=== PATIENT | male | born 1945 | race Caucasian/White ===

== ENCOUNTER 2016-12-23 14:07 | Inpatient (IN) | payer MEDICARE, OTHER ==
[~2016-12-23] VITALS: Ht 162.6 cm; Wt 52.2 kg
[~2016-12-23 14:07] MED LIST: CARI350T27 PO; ESOM40CA PO; FLUT1DIS3 IH; HYDR-548 PO; LEVE500T9 PO; LEVO100T9 PO; MECL-118 PO; PREG150C PO; QUET50TA PO; TOPI-37 PO; TRAM50TA2 PO; TUDORZA INH; ZOLP10TA6 PO
--- NOTE | 2016-12-23 14:25 | NUR ---
AAOX3, C/O PAIN TO L GROIN X 2 MONTHS. RESP IS EVEN AND UNLABORED WITH NAD NOTED. SKIN IS WARM AND NON DIAPHORETIC. AWAITING MD FOR EVAL.
[2016-12-23 14:52] LABS: BASOPHILS % (AUTO) 0.5 % (0.0-2.0); EOSINOPHILS # (AUTO) 0.1 /CMM (0.0-0.7); EOSINOPHILS % (AUTO) 2.1 % (0.0-6.0); HEMATOCRIT 37 % (39-51); HEMOGLOBIN 13.2 g/dL (13.5-17.5); LYMPHOCYTES # (AUTO) 1.8 /CMM (0.8-4.8); LYMPHOCYTES % (AUTO) 32.8 % (20.0-44.0); MEAN CORPUSCULAR HEMOGLOBIN 32 PG (26.0-33.0); MEAN CORPUSCULAR HGB CONC 36 g/dl (31.0-36.0); MEAN CORPUSCULAR VOLUME 91 fL (80-96); MONOCYTES # (AUTO) 0.4 /CMM (0.1-1.30); MONOCYTES % (AUTO) 6.8 % (2.0-12.0); NEUTROPHILS # (AUTO) 3.3 /CMM (1.8-8.9); NEUTROPHILS % (AUTO) 57.8 % (43.0-81.0); PLATELET COUNT (AUTO) 162 /CMM (150-450); RDW COEFFICIENT OF VARIATION 12.8 (11.5-15.0); RED BLOOD CELL COUNT(AUTO) 4.09 MIL/uL (4.5-6.0); WHITE BLOOD COUNT (AUTO) 5.6 K/uL (4.3-11.0)
[2016-12-23] MEDS ORDERED: IV SET PRIMARY 1 EA INFUS.SET MC ONE (14:54)
[2016-12-23] MEDS ORDERED: IV NS 0.9% 500 ML IV ONE (14:54)
[2016-12-23] MEDS ORDERED: MORPHINE SULFATE INJ 4 MG/ML DISP.SYRIN ONE (14:54)
[2016-12-23] MEDS ORDERED: ONDANSETRON HCL/PF 4 MG/2 ML VIAL ONE (14:54)
[2016-12-23] MEDS ORDERED: IV NS 0.9% 500 ML BAG IV ONE (15:00)
[2016-12-23] MEDS ORDERED: ONDANSETRON HCL/PF 4 MG/2 ML VIAL IVP ONE (15:00)
[2016-12-23] MEDS ORDERED: MORPHINE SULFATE INJ 2 MG/ML DISP.SYRIN IV ONE (15:00)
[2016-12-23 15:02] LABS: CALCIUM, SERUM 9.1 mg/dL (8.5-10.1); CREATININE 0.9 mg/dL (0.6-1.3); POTASSIUM 4.1 mmol/L (3.5-5.1)
[2016-12-23] MEDS ORDERED: IV NS 0.9% 250 ML IV ONE (15:09)
[2016-12-23] MEDS ORDERED: CT SWABBABLE VALVE TRANS SET 1 EA INFUS.SET MC ONE (15:09)
[2016-12-23 15:10] LABS: ALBUMIN 3.9 g/dL (3.4-5.0); BILIRUBIN,DIRECT 0.1 mg/dL (0.0-0.2); BILIRUBIN,TOTAL 0.2 mg/dL (0.2-1.0); TOTAL PROTEIN, SERUM 7.1 g/dL (6.4-8.2)
--- NOTE | 2016-12-23 15:58 | NUR ---
PATIENT CAME BACK FROM CT VIA WHEELCHAIR.
--- NOTE | 2016-12-23 16:30 | NUR ---
Patient is resting comfortably in bed with eyes closed. Easily aroused. VSS
[2016-12-23 16:58] LABS: APPEARANCE,URINE Clear (CLEAR); BILIRUBIN,URINE Negative (NEGATIVE); BLOOD, URINE Trace-lysed Ery/uL (NEGATIVE); COLOR,URINE Yellow (YELLOW); KETONES,URINE Negative (NEGATIVE); LEUKOCYTE ESTERASE ,URINE Negative (NEGATIVE); NITRITE, URINE Negative (NEGATIVE); PH,URINE 7.5 (5.0-8.0); PROTEIN,URINE Negative (NEGATIVE); UGLUCOSE Negative (NEGATIVE); UROBILINOGEN,URINE 0.2 EU/dL (0.2)
--- NOTE | 2016-12-23 17:08 | NUR ---
JACEY ROME AT FOR AN UPDATE AND RE-EVAL.
[2016-12-23 17:15] LABS: WBC,URINE 0-2 /HPF (0-3)
[2016-12-23 17:16] LABS: ADD URINE CULTURE NO; BACTERIA,URINE None seen /HPF (None Seen); SQUAMOUS EPITHELIAL CELL,UR Few /HPF (None Seen)
--- NOTE | 2016-12-23 17:33 | NUR ---
CALLED DR DOTY ON THE PHONE WITH JACEY HERNANDEZ
--- NOTE | 2016-12-23 17:47 | NUR ---
REPAGED DR DOTY FOR DR DURANT
[2016-12-23] MEDS ORDERED: BUDE90AE IH (17:51)
[2016-12-23] MEDS ORDERED: TAMS-12 PO (17:51)
[2016-12-23] MEDS ORDERED: DONE5TAB34 PO (17:51)
[2016-12-23] MEDS ORDERED: CYAN10006 IM (17:51)
[2016-12-23] MEDS ORDERED: ESOM40CA52 PO (17:51)
[2016-12-23] MEDS ORDERED: MIRT30TA7 PO (17:51)
[2016-12-23] MEDS ORDERED: SENN-71 PO (17:51)
[2016-12-23] MEDS ORDERED: TIOT4MIS3 IH (17:51)
[2016-12-23] MEDS ORDERED: ERGO50003 PO (17:51)
[2016-12-23] MEDS ORDERED: BICA50TA6 PO (17:51)
[2016-12-23] MEDS ORDERED: ASPI81TA2 PO (17:51)
[2016-12-23] MEDS ORDERED: LORA10TA7 PO (17:51)
[2016-12-23] MEDS ORDERED: MEMA5TAB PO (17:51)
[2016-12-23] MEDS ORDERED: FLUT1BLS IH (17:51)
--- NOTE | 2016-12-23 18:30 | NUR ---
REPORT GIVEN TO THEA GODINEZ FOR WERNER MS [id number]
--- NOTE | 2016-12-23 19:20 | NUR ---
RN OPEN NOTES RECEIVED PATIENT AWAKE SITTING ON BED WITH FAMILY AT BEDSIDE. NEW ADMIT FROM ER THAT ARRIVED ON UNIT AT 1900 PER RN. A/O X3. NO SIGNS OF DISTRESS OR DISCOMFORT. BREATHING EVEN AND UNLABORED. STATES HE HAS ABD PAIN 12/26. IV ACCESS IN LAC PATENT AND INTACT. NO SIGNS OF REDNESS OR INFILTRATION. ORIENTED PATIENT TO UNIT AND ROOM. BED IN LOW LOCKED POSITION WITH SIDE RAILS X2. CALL LIGHT WITHIN REACH. WILL CONTINUE TO MONITOR.
[2016-12-23 20:00] VITALS: BP 125/67
[2016-12-23] MEDS ORDERED: ACETAMINOPHEN 325 MG/SUPP.RECT RC PRN (20:30)
[2016-12-23] MEDS ORDERED: ZOLPIDEM TARTRATE 10 MG TABLET PO PRN (20:30)
[2016-12-23] MEDS ORDERED: ONDANSETRON HCL/PF 4 MG/2 ML VIAL IV PRN (20:30)
[2016-12-23] MEDS ORDERED: PANTOPRAZOLE 40 MG VIAL IV SCH (21:00)
[2016-12-23] MEDS ORDERED: IV SET PRIMARY PUMP SET 1 EA INFUS.SET MC ONE (21:30)
[2016-12-23] MEDS: ALPRAZOLAM 0.25 MG TABLET PO SCH (21:40)
[2016-12-23] MEDS: QUETIAPINE FUMARATE 25 MG TABLET PO SCH (21:40)
[2016-12-23] MEDS: IV D5/ 0.9% NACL 1,000 ML IV SCH (21:40)
--- NOTE | 2016-12-23 21:45 | NUR ---
RN NOTES DR. DOTY IN TO SEE PATIENT.
[2016-12-23 22:19] LABS: MAGNESIUM 1.8 mg/dL (1.8-2.4)
[2016-12-23] MEDS: METRONIDAZOLE 500MG/ NS 100ML 250 MG in PREMIX 1 EA IV SCH (23:09)
--- NOTE | 2016-12-23 23:35 | NUR ---
RN NOTES RECEIVED T/O FROM DR. DOTY TO PUT PATIENT ON PUREED DIET WITH ENSURE 3X A DAY. WILL CONTINUE TO MONITOR. Addendum: 12/24/16 at 0738 by OREN FLORES RN DR. DOTY WORK: [phone] C/P: [phone]
[2016-12-24] MEDS: METRONIDAZOLE 500MG/ NS 100ML 250 MG in PREMIX 1 EA IV SCH ×4 (05:32→23:58)
--- NOTE | 2016-12-24 06:30 | NUR ---
RN NOTES STARTED NEW IV ACCESS IN L WRIST 20G. WILL CONTINUE TO MONITOR.
[2016-12-24 06:34] LABS: BASOPHILS % (AUTO) 0.6 % (0.0-2.0); EOSINOPHILS # (AUTO) 0.1 /CMM (0.0-0.7); EOSINOPHILS % (AUTO) 2.1 % (0.0-6.0); HEMATOCRIT 34 % (39-51); HEMOGLOBIN 11.6 g/dL (13.5-17.5); LYMPHOCYTES # (AUTO) 1.9 /CMM (0.8-4.8); LYMPHOCYTES % (AUTO) 37.7 % (20.0-44.0); MEAN CORPUSCULAR HEMOGLOBIN 31 PG (26.0-33.0); MEAN CORPUSCULAR HGB CONC 34 g/dl (31.0-36.0); MEAN CORPUSCULAR VOLUME 91 fL (80-96); MONOCYTES # (AUTO) 0.4 /CMM (0.1-1.30); MONOCYTES % (AUTO) 8.4 % (2.0-12.0); NEUTROPHILS # (AUTO) 2.6 /CMM (1.8-8.9); NEUTROPHILS % (AUTO) 51.2 % (43.0-81.0); PLATELET COUNT (AUTO) 164 /CMM (150-450); RDW COEFFICIENT OF VARIATION 13.6 (11.5-15.0); RED BLOOD CELL COUNT(AUTO) 3.72 MIL/uL (4.5-6.0)
[2016-12-24 06:49] LABS: BILIRUBIN,TOTAL 0.3 mg/dL (0.2-1.0); CREATININE 0.8 mg/dL (0.6-1.3); POTASSIUM 3.5 mmol/L (3.5-5.1); TOTAL PROTEIN, SERUM 5.6 g/dL (6.4-8.2)
[2016-12-24 06:58] LABS: THYROID STIMULATING HORMONE 0.405 uIU/mL (0.358-3.74)
--- NOTE | 2016-12-24 07:31 | NUR ---
RN CLOSING NOTES PATIENT AWAKE IN BED WITH FAMILY AT BEDSIDE. A/O X3. NO SIGNS OF DISTRESS OR DISCOMFORT. BREATHING EVEN AND UNLABORED. DENIES ANY PAIN AT THIS TIME. IV ACCESS IN L WRIST WITH D5NS INFUSING, PATENT AND INTACT. NO SIGNS OF REDNESS OR INFILTRATION. NO SIGNIFICANT CHANGES THROUGH THE NIGHT. ALL NEEDS MET. PATIENT KEPT CLEAN DRY AND COMFORTABLE. BED IN LOW LOCKED POSITION WITH SIDE RAILS X2. CALL LIGHT WITHIN REACH. ENDORSED TO AM SHIFT FOR WERNER.
[2016-12-24 08:00] VITALS: BP 101/60
[2016-12-24] MEDS ORDERED: Magnesium 1GM/D5W 100ML PREMIX PIGGYBACK IV SCH (08:00)
--- NOTE | 2016-12-24 08:00 | NUR ---
ms rn notes Received a call from Dr. White and ordered Magnesium IV 2g x 2 days, calcium gluconate x 2 days, ferrlicet x 5 days. Cervical spine, left shoulder, and hip x ray today. All orders carried out and noted. Will continue to monitor patient accordingly.
[2016-12-24] MEDS ORDERED: SECONDARY IV SET 1 EA INFUS.SET MC ONE ×4 (08:41→17:54)
[2016-12-24] MEDS: CYANOCOBALAMIN 1,000 MCG/ML VIAL IM SCH (08:47)
[2016-12-24] MEDS: Calcium Gluconate 1GM/10ML 4.65 MEQ in IV D5W 50 ML IV SCH ×2 (08:47→09:59)
[2016-12-24] MEDS: ALPRAZOLAM 0.25 MG TABLET PO SCH ×2 (08:47→17:53)
[2016-12-24] MEDS: QUETIAPINE FUMARATE 25 MG TABLET PO SCH ×2 (08:47→17:53)
--- NOTE | 2016-12-24 10:26 | NUR ---
MS RN OPENING NOTES PATIENT A/OX3 WITH FAMILY MEMBER AT BEDSIDE. PT SHOWED NO SIGNS OF DISCOMFORT/DISTRESS. BREATHING EVEN AND UNLABORED. IV ACCESS PATENT AND INTACT. PT KEPT COMFORTABLE, CLEAN, AND
[2016-12-24] MEDS: Magnesium 1GM/D5W 100ML PREMIX 100 ML IV SCH ×2 (10:38→11:55)
[2016-12-24] MEDS ORDERED: MECLIZINE HCL 12.5 MG TABLET PO PRN (12:00)
[2016-12-24] MEDS ORDERED: TRAMADOL HCL 50 MG TABLET PO SCH ×2 (12:00→21:00)
[2016-12-24] MEDS ORDERED: CYANOCOBALAMIN 1,000 MCG/ML VIAL IM SCH (12:00)
--- NOTE | 2016-12-24 12:41 | NUR ---
ms rn notes Spoke to Dr. White through phone and clarified regarding patient psych medication orders and per MD to continue medication as ordered. All orders carried out and noted. Will continue to monitor patient accordingly.
[2016-12-24] MEDS: ASPIRIN 81 MG TAB.CHEW PO SCH (13:04)
[2016-12-24] MEDS: BICALUTAMIDE 50 MG TABLET PO SCH (13:04)
[2016-12-24] MEDS: PANTOPRAZOLE 40 MG TABLET.DR PO SCH (13:04)
[2016-12-24] MEDS: SENNOSIDES/DOCUSATE SODIUM 1 TAB TABLET PO SCH (13:05)
[2016-12-24] MEDS: LORATADINE 10 MG TABLET PO SCH (13:05)
[2016-12-24] MEDS: DONEPEZIL 5 MG TABLET PO SCH (13:05)
[2016-12-24] MEDS: TAMSULOSIN 0.4 MG CAP.SR.24H PO SCH (13:05)
[2016-12-24] MEDS: SOD FERRIC GLUC 125 MG in IV NS 0.9% 100 ML IV SCH (14:12)
[2016-12-24 14:13] LABS: FREE PSA 0.32 ng/mL (0.00-45); PROSTATE SPECIFIC ANTIGEN SCR 0.63 ng/mL (0.00-4.00); URIC ACID 4.7 mg/dL (2.6-7.2)
[2016-12-24 16:00] VITALS: BP 101/53
[2016-12-24] MEDS: PREGABALIN 25 MG CAPSULE PO SCH (17:53)
[2016-12-24] MEDS: MEMANTINE HCL 5 MG TABLET PO SCH (17:53)
[2016-12-24 18:00] VITALS: BP 101/53
[2016-12-24] MEDS: HYDROCODONE/APAP 10/325MG 1 EA TABLET PO PRN (18:07)
--- NOTE | 2016-12-24 18:17 | NUR ---
MS RN NOTES: PT REFUSED LYRICA 150MG AND NAMENDA 10MG. WILL RETURN TO THE PYXIS. EXPLAINED THE BENEFITS AND RISKS x3 AND PT STILL REFUSED. WILL CONTINUE TO MONITOR PT.
--- NOTE | 2016-12-24 18:38 | NUR ---
MS RN NOTES Dr. White came seen and examined the patient and ordered Tegretol 100 mg 1 tab PO BID. All orders carried out and noted. Will continue to monitor accordingly.
[2016-12-24] MEDS: CARBAMAZEPINE 100 MG TAB.CHEW PO SCH (18:54)
[2016-12-24] MEDS: SUMATRIPTAN SUCCINATE 6 MG/0.5 ML VIAL SQ PRN (18:54)
--- NOTE | 2016-12-24 19:29 | NUR ---
MS RN CLOSING NOTES PATIENT RESTING IN BED. A/O X3. NO SIGNS OF DISTRESS OR DISCOMFORT. BREATHING EVEN AND UNLABORED. IV ACCESS PATENT AND INTACT. NO SIGNS OF REDNESS OR INFILTRATION. DENIES ANY PAIN AT THIS TIME. KEPT CLEAN, DRY, AND COMFORTABLE. NO SIGNIFICANT CHANGES THROUGH THE SHIFT. ALL NEEDS MET. BED IN LOW LOCKED POSITION WITH SIDE RAILS X2. CALL LIGHT WITHIN REACH. ENDORSED TO GREEN LUMBER GRADER NURSE.
[2016-12-24 20:00] VITALS: BP 136/76
--- NOTE | 2016-12-24 20:00 | NUR ---
MS RN NOTES RECEIVED ON BED SLEEPING,BREATHING REGULAR,NOT IN ANY FORM OF DISTRESS.PRESENT IVF D5NS AT 75ML/HR RATE VIA IV PUMP,SITE PATENT.FAMILY MEMBER AT BEDSIDE.CALL LIGHT IN REACH,NEEDS ANTICIPATED.
--- NOTE | 2016-12-24 20:00 | NUR ---
MS RN NOTES FAMILY MEMBER REFUSED VITAL SIGNS TO BE CHECK AT THIS TIME,TILL PATIENT AWAKE.
[2016-12-24] MEDS ORDERED: MIRTAZAPINE 15 MG TABLET PO SCH (22:00)
[2016-12-24] MEDS ORDERED: ZOLPIDEM TARTRATE 10 MG TABLET PO SCH (22:00)
[2016-12-24] MEDS: IV D5/ 0.9% NACL 1,000 ML IV SCH (22:13)
[2016-12-25] VITALS: BP 136/76
--- NOTE | 2016-12-25 05:00 | NUR ---
MS RN NOTES AWAKE,AMBULATE IN THE HALLWAYS WITH ,WITH STEADY GAIT.C/O HEADACHE POST AMBULATION.
[2016-12-25] MEDS ORDERED: SUMATRIPTAN SUCCINATE 6 MG/0.5 ML VIAL SQ ONE (05:35)
[2016-12-25] MEDS: METRONIDAZOLE 500MG/ NS 100ML 250 MG in PREMIX 1 EA IV SCH ×4 (05:42→23:42)
[2016-12-25] MEDS: SUMATRIPTAN SUCCINATE 6 MG/0.5 ML VIAL SQ PRN (05:49)
--- NOTE | 2016-12-25 05:49 | NUR ---
MS RN NOTES MEDICATED WITH IMITREX 6MG SQ ORDERED FOR HEADACHE
--- NOTE | 2016-12-25 06:35 | NUR ---
MS RN NOTES SLEEPING AT THIS TIME, AT BEDSIDE,IVF FLUIDS SITE REMAINS PATENT.IN NO ACUTE DISTRESS.WILL ENDORSE TO DAY NURSE FOR WERNER.
--- NOTE | 2016-12-25 07:11 | NUR ---
MS RN OPENING NOTES PATIENT RECEIVED ASLEEP IN BED, EASILY AWAKENS WITH AT BEDSIDE. ALERT AND ORIENTED X3. ABLE TO VERBALIZED NEEDS, NO C/O OF PAIN OR DISCOMFORTS AT THIS TIME. ON ROOM AIR, BREATHING WELL WITH NO SOB OBSERVED. HOB ELEVATED. IV ACCESS ON LEFT WRIST PATENT AND INTACT WITH IVF OF D5NS @ 75ML/HR INFUSING WELL, NO SIGNS OF INFILTRATION NOTED. CALL LIGHT WITHIN EASY REACH, BED IN LOW POSITION AND LOCKED. SAFETY MEASURES MAINTAINED. WILL CONTINUE TO MONITOR ACCORDINGLY.
[2016-12-25 08:00] VITALS: BP 110/62
[2016-12-25] MEDS: PANTOPRAZOLE 40 MG TABLET.DR PO SCH (08:27)
[2016-12-25] MEDS: LEVOTHYROXINE SODIUM 100 MCG TABLET PO SCH (08:27)
[2016-12-25] MEDS: ASPIRIN 81 MG TAB.CHEW PO SCH (08:28)
[2016-12-25] MEDS: CARBAMAZEPINE 100 MG TAB.CHEW PO SCH ×3 (08:28→20:09)
[2016-12-25] MEDS: TAMSULOSIN 0.4 MG CAP.SR.24H PO SCH (08:28)
[2016-12-25] MEDS: MEMANTINE HCL 5 MG TABLET PO SCH ×2 (08:29→17:00)
[2016-12-25] MEDS: QUETIAPINE FUMARATE 25 MG TABLET PO SCH ×2 (08:29→17:56)
[2016-12-25] MEDS: BICALUTAMIDE 50 MG TABLET PO SCH (08:29)
[2016-12-25] MEDS: DONEPEZIL 5 MG TABLET PO SCH (08:29)
[2016-12-25] MEDS: CYANOCOBALAMIN 1,000 MCG/ML VIAL IM SCH (08:30)
[2016-12-25] MEDS: PREGABALIN 25 MG CAPSULE PO SCH ×2 (08:31→17:00)
[2016-12-25] MEDS: HYDROCODONE/APAP 10/325MG 1 EA TABLET PO PRN ×2 (08:37→17:55)
[2016-12-25] MEDS: LORATADINE 10 MG TABLET PO SCH (08:38)
[2016-12-25] MEDS: ALPRAZOLAM 0.25 MG TABLET PO SCH ×2 (08:39→17:56)
[2016-12-25] MEDS: SENNOSIDES/DOCUSATE SODIUM 1 TAB TABLET PO SCH (08:40)
[2016-12-25 08:44] LABS: RETICULOCYTE COUNT 0.5 % (0.6-2.5)
[2016-12-25] MEDS: STIOLTO RESPIMAT INH SCH (11:00)
--- NOTE | 2016-12-25 13:47 | NUR ---
RN NOTES CALLED DR DOTY AND LEFT MESSAGE TO CHECK/RECONCILE PATIENT'S MEDICATIONS TEGRETOL AND ULTRAM (CAUSES ADVERSE REACTIONS WHEN TAKEN BY PATIENT). LEFT MESSAGE TO CALL ME BACK. WILL FOLLOW-UP.
[2016-12-25] MEDS: BREO ELLIPTA INH SCH (13:54)
[2016-12-25] MEDS: SOD FERRIC GLUC 125 MG in IV NS 0.9% 100 ML IV SCH (14:11)
[2016-12-25 16:00] VITALS: BP 121/71
[2016-12-25] MEDS: PULMICORT INH SCH (17:55)
--- NOTE | 2016-12-25 18:15 | NUR ---
RN NOTES PATIENT SEEN AND EXAMINED BY DR DOTY, ORDERED TO DISCONTINUE ULTRAM TAB AND INCREASED TEGRETOL T0 200MG BID. WILL CONTINUE TO MONITOR.
--- NOTE | 2016-12-25 18:55 | NUR ---
M/RN CLOSING NOTES PATIENT RESTING IN BED WITH FAMILY AT BEDSIDE. ALERT AND ORIENTED X3. ABLE TO VERBALIZED NEEDS AND CONCERNS. ON ROOM AIR, BREATHING WELL. HOB ELEVATED. ALL NEEDS AND CARE PROVIDED. IV ACCESS PATENT AND INTACT WITH IVF OF D5NS @ 75ML/HR IN PROGRESS, NO SIGNS OF INFILTRATION NOTED. ALL DUE MEDS GIVEN ORDERED AND TOLERATED. CALL LIGHT WITHIN EASY REACH, BED IN LOW POSITION AND LOCKED. SAFETY MEASURES MAINTAINED. WILL ENDORSED TO MEDIA INTERN NURSE FOR CONTINUITY OF CARE..
--- NOTE | 2016-12-25 19:30 | NUR ---
MS NURSE'S OPENING NOTES RECEIVED REPORT FROM NIGHT NURSE. PATIENT WAS RESTING IN BED WITH SIDE RAILS UP X2, CALL LIGHT WITHIN REACH, NO SIGNS OR SOB. WILL CONTINUE TO ASSESS, MONITOR, AND IMPLEMENT PLAN OF CARE.
[2016-12-25 20:00] VITALS: BP 107/65
[2016-12-25] MEDS ORDERED: MIRTAZAPINE 15 MG TABLET PO SCH (22:00)
[2016-12-25 22:43] VITALS: BP 107/65
[2016-12-26] MEDS: METRONIDAZOLE 500MG/ NS 100ML 250 MG in PREMIX 1 EA IV SCH ×2 (05:16→12:31)
--- NOTE | 2016-12-26 06:28 | NUR ---
MS NURSE'S CLOSING NOTES PATIENT IS RESTING IN BED. NO SIGNS OF SOB OR DISTRESS. DENIES OF PAIN, SIDE RAILS UP X2. CALL LIGHT WITHIN REACH. WILL GIVE REPORT TO INCOMING NURSE.
--- NOTE | 2016-12-26 07:12 | NUR ---
M/RN OPENING NOTES PATIENT RECEIVED AWAKE IN BED WITH AT BEDSIDE. ALERT AND ORIENTED X3. ABLE TO VERBALIZED NEEDS, NO C/O OF PAIN OR DISCOMFORTS AT THIS TIME. ON ROOM AIR, TOLERATING AND BREATHING WELL HOB ELEVATED. IV ACCESS PATENT AND INTACT WITH IVF OF D5NS @ 75ML/HR INFUSING WELL, NO SIGNS OF INFILTRATION NOTED. CALL LIGHT WITHIN EASY REACH, BED IN LOW POSITION AND LOCKED. SAFETY MEASURES MAINTAINED. WILL CONTINUE TO MONITOR ACCORDINGLY
[2016-12-26 07:22] LABS: BASOPHILS % (AUTO) 0.4 % (0.0-2.0); EOSINOPHILS # (AUTO) 0.1 /CMM (0.0-0.7); EOSINOPHILS % (AUTO) 2.8 % (0.0-6.0); HEMATOCRIT 35 % (39-51); HEMOGLOBIN 11.8 g/dL (13.5-17.5); LYMPHOCYTES # (AUTO) 1.6 /CMM (0.8-4.8); LYMPHOCYTES % (AUTO) 35.2 % (20.0-44.0); MEAN CORPUSCULAR HEMOGLOBIN 31 PG (26.0-33.0); MEAN CORPUSCULAR HGB CONC 34 g/dl (31.0-36.0); MEAN CORPUSCULAR VOLUME 91 fL (80-96); MONOCYTES # (AUTO) 0.5 /CMM (0.1-1.30); MONOCYTES % (AUTO) 10.4 % (2.0-12.0); NEUTROPHILS # (AUTO) 2.3 /CMM (1.8-8.9); NEUTROPHILS % (AUTO) 51.2 % (43.0-81.0); PLATELET COUNT (AUTO) 165 /CMM (150-450); RDW COEFFICIENT OF VARIATION 13.3 (11.5-15.0); RED BLOOD CELL COUNT(AUTO) 3.83 MIL/uL (4.5-6.0); WHITE BLOOD COUNT (AUTO) 4.4 K/uL (4.3-11.0)
[2016-12-26] MEDS: LEVOTHYROXINE SODIUM 100 MCG TABLET PO SCH (07:37)
[2016-12-26] MEDS: PANTOPRAZOLE 40 MG TABLET.DR PO SCH (07:37)
[2016-12-26 08:00] VITALS: BP 116/64
[2016-12-26] MEDS: HYDROCODONE/APAP 10/325MG 1 EA TABLET PO PRN (08:00)
[2016-12-26] MEDS: CYANOCOBALAMIN 1,000 MCG/ML VIAL IM SCH (08:47)
[2016-12-26] MEDS: TAMSULOSIN 0.4 MG CAP.SR.24H PO SCH (08:48)
[2016-12-26] MEDS: MEMANTINE HCL 5 MG TABLET PO SCH (08:48)
[2016-12-26] MEDS: CARBAMAZEPINE 100 MG TAB.CHEW PO SCH (08:48)
[2016-12-26] MEDS: PREGABALIN 25 MG CAPSULE PO SCH (08:48)
[2016-12-26] MEDS: BICALUTAMIDE 50 MG TABLET PO SCH (08:48)
[2016-12-26] MEDS: ASPIRIN 81 MG TAB.CHEW PO SCH (08:48)
[2016-12-26] MEDS: QUETIAPINE FUMARATE 25 MG TABLET PO SCH (08:48)
[2016-12-26] MEDS: LORATADINE 10 MG TABLET PO SCH (08:48)
[2016-12-26] MEDS: SENNOSIDES/DOCUSATE SODIUM 1 TAB TABLET PO SCH (08:49)
[2016-12-26] MEDS: STIOLTO RESPIMAT INH SCH (08:52)
[2016-12-26] MEDS: BREO ELLIPTA INH SCH (08:52)
[2016-12-26] MEDS: ALPRAZOLAM 0.25 MG TABLET PO SCH (08:52)
[2016-12-26] MEDS: PULMICORT INH SCH (08:53)
[2016-12-26] MEDS: SOD FERRIC GLUC 125 MG in IV NS 0.9% 100 ML IV SCH (14:58)
--- NOTE | 2016-12-26 17:45 | NUR ---
RN DISCHARGED NOTES PATIENT DISCHARGED HOME AND LEFT UNIT AMBULATORY WITH CANE @ 1700H IN STABLE CONDITION ACCOMPANIED BY AND DAUGHTER. PATIENT IS ALERT AND ORIENTED X 3 IN NO ACUTE SIGNS OF DISTRESS AND NO C/O PAIN DURING DISCHARGE. V/S CHECKED AND RECORDED. BELONGING LIST FORMED SIGNED BY PATIENT. HEALTH TEACHINGS GIVEN TO PATIENT AND FAMILY AND THEY VERBALIZED UNDERSTANDING. PNEUMO VAC REFUSED BY PATIENT. MD AND CHARGE NURSE AWARE OF DISCHARGE.
[2016-12-29] MEDS ORDERED: ERGOCALCIFEROL (VITAMIN D 2) 50,000 UNIT CAPSULE PO SCH (09:00)
== END 2016-12-26 16:50 | disposition home or self-care (01) | DRG 74 ==
LOC: ER 14:10 → MED 18:45
PROVIDERS: ADMIT Family Medicine; ATTEND Family Medicine
DX: E11.43 Type 2 diabetes mellitus with diabetic autonomic (poly)neuropathy (principal); K90.9 Intestinal malabsorption, unspecified; I13.0 Hypertensive heart and chronic kidney disease with heart failure and stage 1 through stage 4 chronic kidney disease, or unspecified chronic kidney disease; K57.92 Diverticulitis of intestine, part unspecified, without perforation or abscess without bleeding; F32.1 Major depressive disorder, single episode, moderate; E11.22 Type 2 diabetes mellitus with diabetic chronic kidney disease; I50.9 Heart failure, unspecified; D63.8 Anemia in other chronic diseases classified elsewhere; E03.9 Hypothyroidism, unspecified; Z86.73 Personal history of transient ischemic attack (TIA), and cerebral infarction without residual deficits; Z87.11 Personal history of peptic ulcer disease; Z83.3 Family history of diabetes mellitus; N18.9 Chronic kidney disease, unspecified; Z85.51 Personal history of malignant neoplasm of bladder; M53.0 Cervicocranial syndrome; M10.9 Gout, unspecified; M53.1 Cervicobrachial syndrome; K40.90 Unilateral inguinal hernia, without obstruction or gangrene, not specified as recurrent; K21.9 Gastro-esophageal reflux disease without esophagitis; J45.909 Unspecified asthma, uncomplicated; E78.5 Hyperlipidemia, unspecified; G43.909 Migraine, unspecified, not intractable, without status migrainosus; M54.10 Radiculopathy, site unspecified; F01.50 Vascular dementia, unspecified severity, without behavioral disturbance, psychotic disturbance, mood disturbance, and anxiety; F90.9 Attention-deficit hyperactivity disorder, unspecified type; F41.0 Panic disorder [episodic paroxysmal anxiety]; F29 Unspecified psychosis not due to a substance or known physiological condition; F17.210 Nicotine dependence, cigarettes, uncomplicated; R63.4 Abnormal weight loss; R42 Dizziness and giddiness; M19.012 Primary osteoarthritis, left shoulder; R26.2 Difficulty in walking, not elsewhere classified; K31.84 Gastroparesis
CPT/HCPCS: 36415; 71010-TC; 72040-TC; 73030-TC; 73510-TC; 80048-TC; 80053-TC; 80076-TC; 81000-TC; 82306; 82533; 82728-TC; 82746; 83540-TC; 83615-TC; 83735-TC; 84153-TC; 84154-TC; 84443-TC; 84550-TC; 85025-TC; 85045-TC; 85652-TC; 87081-TC; A4216; A4606; C9113; J0610; J2270; J2405; J2916; J3030; J3420; J3475; J3490; J7030; J7040; J7042; J7050; J7060; Z7610

== ENCOUNTER 2017-05-25 12:03 | Emergency (ER) | payer MEDICARE, OTHER ==
[~2017-05-25] VITALS: Ht 172.7 cm; Wt 59.0 kg
[~2017-05-25 12:03] MED LIST changes: +ASPI81TA2 PO; +BICA50TA6 PO; +BUDE90AE IH; -CARI350T27 PO; +DONE5TAB34 PO; +ERGO50003 PO; -ESOM40CA PO; +ESOM40CA52 PO; +FLUT1BLS IH; -FLUT1DIS3 IH; -HYDR-548 PO; -LEVE500T9 PO; +LORA10TA7 PO; +MEMA5TAB PO; +MIRT30TA7 PO; -QUET50TA PO; +SENN-71 PO; +TAMS-12 PO; +TIOT4MIS3 IH; -TOPI-37 PO; -TRAM50TA2 PO; -TUDORZA INH
[2017-05-25 12:05] VITALS: BP 116/73
== END 2017-05-25 12:52 | disposition home or self-care (01) ==
LOC: ER 12:07
DX: H61.22 Impacted cerumen, left ear (principal); I10 Essential (primary) hypertension; K21.9 Gastro-esophageal reflux disease without esophagitis; Z79.82 Long term (current) use of aspirin; Z98.890 Other specified postprocedural states; F17.200 Nicotine dependence, unspecified, uncomplicated
CPT/HCPCS: 99281; A4606; Z7502; Z7610

== ENCOUNTER 2018-10-11 13:39 | Inpatient (IN) | payer MEDICARE, OTHER ==
[~2018-10-11] VITALS: Ht 157.5 cm; Wt 56.7 kg
[~2018-10-11 13:39] MED LIST changes: +ASPI-1169 PO; -ASPI81TA2 PO; -BICA50TA6 PO; +BICA50TA8 PO; +ERGO500014 PO; -ERGO50003 PO; -SENN-71 PO; +[UNRECOGNIZED DRUG - CODE] PO
--- NOTE | 2018-10-11 13:49 | NUR ---
BIB W C/O HEADACHE,NAUSEA/VOMITING AND WEAKNESS X 1 WEEK, TO ER BED 4, HOOKED TO MONITOR, AWAITING MD HUIZAR
--- NOTE | 2018-10-11 14:30 | NUR ---
DR ARMAS AT BEDSIDE
[2018-10-11 14:46] LABS: BASOPHILS % (AUTO) 0.7 % (0.0-2.0); EOSINOPHILS % (AUTO) 2.2 % (0.0-6.0); HEMATOCRIT 41 % (39-51); LYMPHOCYTES # (AUTO) 1.7 /CMM (0.8-4.8); LYMPHOCYTES % (AUTO) 32.6 % (20.0-44.0); MEAN CORPUSCULAR HGB CONC 34 g/dl (31.0-36.0); MEAN CORPUSCULAR VOLUME 94 fL (80-96); MONOCYTES # (AUTO) 0.4 /CMM (0.1-1.30); MONOCYTES % (AUTO) 7.9 % (2.0-12.0); NEUTROPHILS % (AUTO) 56.6 % (43.0-81.0); PLATELET COUNT (AUTO) 168 /CMM (150-450); RED BLOOD CELL COUNT(AUTO) 4.42 MIL/uL (4.5-6.0); WHITE BLOOD COUNT (AUTO) 5.3 K/uL (4.3-11.0)
[2018-10-11] MEDS ORDERED: Magnesium 1 GM/2 ML VIAL ONE (14:47)
[2018-10-11] MEDS ORDERED: ONDANSETRON HCL/PF 4 MG/2 ML VIAL ONE (14:47)
[2018-10-11] MEDS ORDERED: Magnesium 1GM/D5W 100ML PREMIX 200 ML IV ONE (14:51)
[2018-10-11 14:57] LABS: CALCIUM, SERUM 9.5 mg/dL (8.5-10.1); CARBON DIOXIDE 31 mmol/L (21-32); CHLORIDE 106 mmol/L (98-107); GLUCOSE 110 mg/dL (74-106); POTASSIUM 4.2 mmol/L (3.5-5.1); SODIUM SERUM 142 mmol/L (136-145); UREA NITROGEN, BLOOD 21 mg/dL (7-18)
[2018-10-11] MEDS ORDERED: ONDANSETRON HCL/PF - ER 4 MG/2 ML VIAL IV ONE (15:00)
[2018-10-11] MEDS ORDERED: Magnesium 1 GM/2 ML VIAL IV ONE (15:00)
[2018-10-11] MEDS ORDERED: IV NS 0.9% 1,000 ML BAG IV ONE (15:00)
[2018-10-11] MEDS ORDERED: VALPROATE 1,000 MG in IV NS 0.9% 100 ML IV SCH (15:00)
[2018-10-11] MEDS ORDERED: IOHEXOL-350 100 ML VIAL IV ONE (15:04)
[2018-10-11] MEDS ORDERED: IV NS 0.9% 250 ML IV ONE (15:04)
[2018-10-11] MEDS ORDERED: CT SWABBABLE VALVE TRANS SET 1 EA INFUS.SET MC ONE (15:04)
[2018-10-11 15:08] LABS: ALANINE AMINOTRANSFERASE 16 U/L (12-78); ALBUMIN 4.2 g/dL (3.4-5.0); ALKALINE PHOSPHATASE 64 U/L (46-116); ASPARTATE AMINOTRANSFERASE 13 U/L (15-37); BILIRUBIN,DIRECT 0.1 mg/dL (0.0-0.2); BILIRUBIN,TOTAL 0.5 mg/dL (0.2-1.0); TOTAL PROTEIN, SERUM 7.8 g/dL (6.4-8.2)
--- NOTE | 2018-10-11 15:46 | NUR ---
CALLED DR SHORT, WAS PAGED.
[2018-10-11] MEDS ORDERED: MORPHINE SULFATE INJ 10 MG/ML DISP.SYRIN ONE (15:54)
[2018-10-11] MEDS ORDERED: MORPHINE SULFATE INJ 2 MG/ML DISP.SYRIN IV ONE (16:00)
[2018-10-11] MEDS ORDERED: TOPI25TA49 PO (17:00)
[2018-10-11] MEDS ORDERED: MEGE40TA PO (17:00)
[2018-10-11] MEDS ORDERED: ALBUTEROL FS 2.5 MG/3 ML VIAL.NEB NEB ONE (17:00)
[2018-10-11] MEDS ORDERED: FLUT1DIS3 IH (17:00)
[2018-10-11] MEDS ORDERED: NEBI5TAB8 PO (17:00)
[2018-10-11] MEDS ORDERED: IPRATROPIUM NEB FS 0.5 MG/2.5 ML AMPUL.NEB NEB ONE (17:00)
[2018-10-11] MEDS ORDERED: DIPH25CA46 PO (17:00)
[2018-10-11] MEDS ORDERED: TRAM50TA2 PO (17:00)
[2018-10-11] MEDS ORDERED: DOCU-141 PO (17:00)
[2018-10-11] MEDS ORDERED: HYDR-4354 PO (17:00)
[2018-10-11] MEDS ORDERED: ESCI10TA PO (17:00)
[2018-10-11 17:07] LABS: APPEARANCE,URINE Clear (CLEAR); BILIRUBIN,URINE Negative (NEGATIVE); BLOOD, URINE Trace-lysed Ery/uL (NEGATIVE); COLOR,URINE Yellow (YELLOW); KETONES,URINE Trace (NEGATIVE); LEUKOCYTE ESTERASE ,URINE Negative (NEGATIVE); NITRITE, URINE Negative (NEGATIVE); PROTEIN,URINE Negative (NEGATIVE); UGLUCOSE Negative (NEGATIVE); UROBILINOGEN,URINE 0.2 EU/dL (0.2)
[2018-10-11 17:27] LABS: BACTERIA,URINE None seen /HPF (None Seen); SQUAMOUS EPITHELIAL CELL,UR Few /HPF (None Seen); WBC,URINE 0-2 /HPF (0-3)
--- NOTE | 2018-10-11 17:34 | NUR ---
REPORT GIVEN TO LIEN SIDHU OF MED-SURG UNIT
[2018-10-11] MEDS ORDERED: ALBUTEROL FS 2.5 MG/3 ML VIAL.NEB ONE (17:40)
[2018-10-11] MEDS ORDERED: IPRATROPIUM NEB FS 0.5 MG/2.5 ML AMPUL.NEB ONE (17:40)
--- NOTE | 2018-10-11 19:45 | NUR ---
SIEVE GRADER TENDERWARP YARN SORTER NOTES As per report, patient came to unit at 1850. Received patient in bed, family at bedside. Patient is complaining of severe headache. Called Dr. White for orders. Orders noted and carried out. According to Dr. White, he will see the patient in the morning. Patient speaks polish/ danish. Daughter able to translate. Refused norco as it does not work. Patient and family is requesting ambien as patient wants to rest and according to daughter, it is what helps him best. Patient refused body check but as per daughter, there are no skin issues. Informed the family not to give any medications to patient, told them to bring the medications home. Medications given as ordered. Other information for admission taken from who also speaks very minimal indian- Antonio, monitor car operator, translated the information. As per , patient has decreased appetite due to headache, dietary consult requested. Patient for XRay of Cervical spine and pelvis as ordered. Oriented to call wilks, put within easy rech. Bed in low, locked position. Will continue to monitor accordingly
[2018-10-11 20:00] VITALS: BP 109/62
[2018-10-11] MEDS: ZOLPIDEM TARTRATE 10 MG TABLET PO PRN (20:16)
--- NOTE | 2018-10-11 20:26 | NUR ---
PRE K LEAD TEACHER NOTES TELE MONITOR IN PLACE- SINUS RHYTHM 76
[2018-10-11] MEDS ORDERED: diphenhydrAMINE HCL 25 MG CAPSULE PO PRN (20:30)
[2018-10-11] MEDS ORDERED: MECLIZINE HCL 12.5 MG TABLET PO PRN (23:00)
[2018-10-11] MEDS ORDERED: IV D5/0.45 NACL 1,000 ML IV PRN (23:00)
[2018-10-11] MEDS ORDERED: NEBIVOLOL 5 MG PO SCH (23:30)
[2018-10-12] VITALS: BP 110/62
[2018-10-12 00:31] VITALS: BP 110/62
[2018-10-12] MEDS: HYDROCODONE/APAP 10/325MG 1 EA TABLET PO PRN ×2 (01:36→21:28)
--- NOTE | 2018-10-12 01:38 | NUR ---
RN BONE MARROW TRANSPLANT NOTES PATIENT C/O HEADACHE, 05/28. REQUESTING FOR AMBIEN AGAIN BUT EXPLAINED THAT HE HAS ALREADY BEEN GIVEN AMBIEN. EXPLAINED THAT HE HAS AN ORDER FOR NORCO 10. PATIENT AGREED TO TAKE IT- GIVEN ORDERED. WILL CONTINUE TO MONITOR
--- NOTE | 2018-10-12 02:15 | NUR ---
EMERGENCY DEPARTMENT RN NOTES LEFT MESSAGE TO [facility] [employer] THAT PATIENT NEEDS CERVICAL COLLAR ORDERED
--- NOTE | 2018-10-12 06:38 | NUR ---
INVESTIGATION LIEUTENANT CLOSING NOTES PATIENT SLEEPING IN BED, EASILY AROUSABLE. AT BEDSIDE. TELE MONITOR IN PLACE, SB-SR [id number]. BREATHING EVEN AND UNLABORED. NOT IN ANY DISTRESS. NO COMPLAINTS OF THIS TIME. PATIENT FOR CERVICAL AND PELVIC XRAY. PERIPHERAL IV INFUSING AT 50ML/HR. ALL NEEDS ATTENDED TO. MEDICATIONS GIVEN ORDERED. WILL ENDORSE WERNER TO ONCOMING RN
--- NOTE | 2018-10-12 07:00 | NUR ---
crew person Opening Note Patient awake, resting in bed. No acute distress noted, SOB or signs/symptoms of chest pain. Alert and oriented x 3, able to verbalize needs. Primarily Slovak/South Sudanese speaking. currently at bedside. Ambulates with steady gait. laboratory monitor: sinus bradycardia at 60 bpm. Peripheral IV access to the left AC, intact, patent and infusing D5 1/2 NS @ 50 mL/hr. Skin warm and dry to touch. Fall and Safety precautions in place: bed in lowest and locked position, bed alarm on, side rails up x2, call light and personal possessions within reach. Verbalized understanding and demonstrated use of safety features. Will continue to monitor accordingly.
[2018-10-12 08:00] VITALS: BP 96/53
[2018-10-12] MEDS ORDERED: MISCELLANEOUS MED 1 EA EA XX ONE (08:00)
[2018-10-12] MEDS ORDERED: IV D5/0.45 NACL 1,000 ML IV PRN (08:30)
[2018-10-12] MEDS: TRAMADOL HCL 50 MG TABLET PO SCH ×2 (08:44→17:42)
[2018-10-12] MEDS: DOCUSATE SODIUM 100 MG CAPSULE PO SCH ×2 (08:44→17:41)
[2018-10-12] MEDS: ESCITALOPRAM OXALATE (10 MG) 10 MG TABLET PO SCH (08:44)
[2018-10-12] MEDS: TOPIRAMATE 25 MG TABLET PO SCH (08:44)
[2018-10-12] MEDS: MEGESTROL ACETATE 40 MG TABLET PO SCH (08:44)
[2018-10-12] MEDS: PREGABALIN 100 MG CAPSULE PO SCH ×2 (08:45→17:42)
[2018-10-12] MEDS: LEVOTHYROXINE SODIUM 125 MCG TABLET PO SCH (08:45)
[2018-10-12] MEDS: NACL IV SCH (08:58)
[2018-10-12] MEDS: MVI ADULT IV SCH (08:58)
[2018-10-12] MEDS: FLUTICASONE/VILANTEROL 1 EACH BLST.W.DEV IH SCH (08:58)
[2018-10-12] MEDS: D5 IV SCH (08:58)
[2018-10-12] MEDS ORDERED: FLUTICASONE/SALMETEROL DISKUS IH SCH (09:00)
[2018-10-12] MEDS ORDERED: NICOTINE PATCH (14MG) 14 MG PATCH.TD24 TD SCH (09:00)
[2018-10-12 11:03] LABS: MAGNESIUM 2.4 mg/dL (1.8-2.4)
[2018-10-12 11:20] LABS: C-REACTIVE PROTEIN 0.7 mg/dL (0.0-0.9); FREE PSA 0.33 ng/mL (0.00-45); PROSTATE SPECIFIC ANTIGEN SCR 1.04 ng/mL (0.00-4.00); THYROID STIMULATING HORMONE 3.478 uIU/mL (0.358-3.74)
[2018-10-12] MEDS: ENSURE ENLIVE 237 ML LIQUID (VANILLA) PO SCH (17:42)
--- NOTE | 2018-10-12 18:54 | NUR ---
Patient is alert, primary language is Central African. Spoke with emre Watkins [phone] , states patient lives on the first floor apartment with spouse. He is ambulatory and independent with adl's and does gardening. Has a cane if needed, no homehealth reported. Has good family support. Emre Watkins [phone] will arrange transportation when discharge. Addendum: 10/12/18 at 1854 by DAVID SHAFFER RN Amended: Links added.
--- NOTE | 2018-10-12 19:00 | NUR ---
MS RN Opening Note Patient awake, resting in bed. No acute events this shift. No acute distress noted, SOB or signs/symptoms of chest pain. Alert and oriented x 3, able to verbalize needs. Primarily Scottish/Turks [place] Caicos Islander speaking. currently at bedside. Ambulates with steady gait. Peripheral IV access to the left AC, intact, patent and infusing multivitamin 10 mL in D5 1/2 NS @ 50 mL/hr. Skin warm and dry to touch. Fall and Safety precautions in place: bed in lowest and locked position, bed alarm on, side rails up x2, call light and personal possessions within reach. Verbalized understanding and demonstrated use of safety features. Will continue to monitor accordingly.
--- NOTE | 2018-10-12 19:04 | NUR ---
MS RN NOTES RECEIVED PATIENT SITTING UP IN BED, ALERT, ORIENTED X 3. FAMILY AT BEDSIDE. BREATHING EVEN AND UNLABORED. NOT IN ANY DISTRESS. NO COMPLAINTS OF THIS TIME. PERIPHERAL IV INFUSING AT 50ML/HR. CALL [place] WITHIN REACH. BED IN LOW, LOCKED POSITION. WILL CONTINUE TO MONITOR ACCORDINGLY
[2018-10-12 20:00] VITALS: BP 103/64
[2018-10-12] MEDS: TAMSULOSIN 0.4 MG CAP.SR.24H PO SCH (21:02)
[2018-10-12] MEDS: MIRTAZAPINE 15 MG TABLET PO SCH (21:02)
--- NOTE | 2018-10-12 21:45 | NUR ---
MS RN NOTES Dr. Glass of neurology came to see the patient. Calling card given to - for appointment on at 3PM. ordered MRI Brain without contrast and Erythrocyte sedimentation rate
--- NOTE | 2018-10-12 22:28 | NUR ---
RN NOTES Came in to get consent of patient for MRI brain without contrast, patient currently sleeping. said to do it tomorrow or whenever the patient wakes up
[2018-10-13] MEDS: ZOLPIDEM TARTRATE 10 MG TABLET PO PRN (01:29)
[2018-10-13] MEDS: D5 IV SCH (05:01)
[2018-10-13] MEDS: NACL IV SCH (05:01)
[2018-10-13] MEDS: MVI ADULT IV SCH (05:01)
--- NOTE | 2018-10-13 07:00 | NUR ---
RN NOTES Consent for MRI brain w/o contrast done.
--- NOTE | 2018-10-13 07:30 | NUR ---
MS RN Closing Note Patient awake, resting in bed. No acute events this shift. No acute distress noted. Alert and oriented x 3. Primarily Divehi/Rwandan speaking. currently at bedside. Ambulates with the use of the cane- steady gait. Peripheral IV access to the left AC, intact, patent and infusing multivitamin 10 mL in D5 1/2 NS @ 50 mL/hr. Skin warm and dry to touch. Fall and Safety precautions in place: bed in lowest and locked position, side rails up x2, call light awithin reach. Verbalized understanding and demonstrated use of safety features. Endorsed WERNER to THEA Clay
--- NOTE | 2018-10-13 07:53 | NUR ---
MS RN OPENING NOTES RECEIVED PATIENT IN STABLE CONDITION. IN NO APPARENT DISTRESS. BEDSIDE RAILS ARE UPX2. BED IS LOCKED AND LOWERED. CALL LIGHT IS WITHIN REACH. IV LINE IS INTACT AND PATENT. WILL CONTINUE TO MONITOR PATIENT.
[2018-10-13 08:00] VITALS: BP 119/67
--- NOTE | 2018-10-13 08:36 | NUR ---
PER DR. DOTY CANCEL MRI DUE TO PATIENT REFUSING. PATIENT STATES HE IS CLAUSTROPHOBIC.
[2018-10-13] MEDS: TOPIRAMATE 25 MG TABLET PO SCH (08:40)
[2018-10-13] MEDS: PREGABALIN 100 MG CAPSULE PO SCH ×2 (08:40→17:35)
[2018-10-13] MEDS: FLUTICASONE/VILANTEROL 1 EACH BLST.W.DEV IH SCH (08:40)
[2018-10-13] MEDS: PANTOPRAZOLE 40 MG TABLET.DR PO SCH (08:41)
[2018-10-13] MEDS: MEGESTROL ACETATE 40 MG TABLET PO SCH (08:45)
[2018-10-13] MEDS: ENSURE ENLIVE 237 ML LIQUID (VANILLA) PO SCH ×3 (08:45→17:38)
[2018-10-13] MEDS: ESCITALOPRAM OXALATE (10 MG) 10 MG TABLET PO SCH (08:45)
[2018-10-13] MEDS: DOCUSATE SODIUM 100 MG CAPSULE PO SCH ×2 (08:45→17:00)
[2018-10-13] MEDS: TRAMADOL HCL 50 MG TABLET PO SCH ×2 (08:45→17:00)
[2018-10-13] MEDS: LEVOTHYROXINE SODIUM 125 MCG TABLET PO SCH (08:46)
[2018-10-13] MEDS: NICOTINE PATCH (7MG) 7 MG PATCH.TD24 TD SCH (08:56)
[2018-10-13] MEDS: HYDROCODONE/APAP 10/325MG 1 EA TABLET PO PRN (11:30)
[2018-10-13] MEDS: AMITRIPTYLINE HCL 10 MG TABLET PO SCH (17:35)
--- NOTE | 2018-10-13 18:26 | NUR ---
MS RN CLOSING NOTES PATIENT IS IN STABLE CONDITION. IN NO APPARENT DISTRESS. BEDSIDE RAILS ARE UPX2. BED IS LOCKED AND LOWERED. CALL LIGHT IS WITHIN REACH. IV LINE IS INTACT AND PATENT. ALL NEEDS WERE MET. WILL ENDORSE CARE TO MURAL PAINTER NURSE FOR WERNER.
--- NOTE | 2018-10-13 19:55 | NUR ---
RN MS OPENING NOTES RECEIVED PT IN BED, AWAKE ALERT ORIENTED X 3-4 DUTCH AND INDONESIAN SPEAKING. BREATHING EVEN AND UNLABORED ON ROOM AIR, NO SOB, COUGH OR CONGESTION NOTES. IV ACCESS ON THE L AC #20G WITH MULTIVITAMIN D5 1/2 NS @50ML/HR. PT DISCONNECTED AT THE MOMENT FOR A WALK AROUND THE UNIT. NO COMPLAINT OF PAIN OR DISCOMFORT AT THE MOMENT, BED IN LOWEST LOCKED POSITION, CALL LIGHT WITHIN REACH AT ALL TIMES.
[2018-10-13 20:00] VITALS: BP 108/61
[2018-10-13] MEDS: MIRTAZAPINE 15 MG TABLET PO SCH (21:57)
[2018-10-13] MEDS: TAMSULOSIN 0.4 MG CAP.SR.24H PO SCH (21:57)
[2018-10-14] MEDS: MVI ADULT IV SCH (01:15)
[2018-10-14] MEDS: NACL IV SCH (01:15)
[2018-10-14] MEDS: D5 IV SCH (01:15)
--- NOTE | 2018-10-14 06:25 | NUR ---
RN MS CLOSING NOTES PT REMAINS IN BED, AWAKE ALERT ORIENTED X 3-4 MONTSERRATIAN AND BULGARIAN SPEAKING. AT BEDSIDE. BREATHING EVEN AND UNLABORED ON ROOM AIR, NO SOB, COUGH OR CONGESTION NOTES. IV ACCESS ON THE L FA #20G WITH MULTIVITAMIN D5 1/2 NS @50ML/HR. NO COMPLAINT OF PAIN OR DISCOMFORT AT THE MOMENT, BED IN LOWEST LOCKED POSITION, ALL NEEDS ATTENDED TO. CALL LIGHT WITHIN REACH AT ALL TIMES. WILL ENDORSE TO DAY NURSE FOR WERNER
[2018-10-14 06:28] LABS: BASOPHILS % (AUTO) 0.4 % (0.0-2.0); EOSINOPHILS % (AUTO) 1.2 % (0.0-6.0); HEMATOCRIT 37 % (39-51); HEMOGLOBIN 12.5 g/dL (13.5-17.5); LYMPHOCYTES % (AUTO) 29.2 % (20.0-44.0); MEAN CORPUSCULAR HGB CONC 34 g/dl (31.0-36.0); MEAN CORPUSCULAR VOLUME 93 fL (80-96); MONOCYTES # (AUTO) 0.6 /CMM (0.1-1.30); MONOCYTES % (AUTO) 9.2 % (2.0-12.0); NEUTROPHILS # (AUTO) 4.1 /CMM (1.8-8.9); PLATELET COUNT (AUTO) 157 /CMM (150-450); RED BLOOD CELL COUNT(AUTO) 3.93 MIL/uL (4.5-6.0); WHITE BLOOD COUNT (AUTO) 6.8 K/uL (4.3-11.0)
[2018-10-14 06:44] LABS: ALANINE AMINOTRANSFERASE 15 U/L (12-78); ALBUMIN 3.3 g/dL (3.4-5.0); ALKALINE PHOSPHATASE 48 U/L (46-116); ASPARTATE AMINOTRANSFERASE 12 U/L (15-37); BILIRUBIN,TOTAL 0.2 mg/dL (0.2-1.0); CALCIUM, SERUM 8.7 mg/dL (8.5-10.1); CARBON DIOXIDE 26 mmol/L (21-32); CHLORIDE 107 mmol/L (98-107); CREATININE 0.7 mg/dL (0.6-1.3); GLUCOSE 105 mg/dL (74-106); SODIUM SERUM 141 mmol/L (136-145); TOTAL PROTEIN, SERUM 6.4 g/dL (6.4-8.2); UREA NITROGEN, BLOOD 14 mg/dL (7-18)
[2018-10-14 08:00] VITALS: BP 118/67
--- NOTE | 2018-10-14 08:00 | NUR ---
RN NOTES RECEIVED PATIENT IN THE BED A/O X3 PALAUAN SPEAKER. PATIENT REFUSED PAIN AT THIS TIME, PER PATIENT WANTED BACK TO SLEEP. NEXT TO THE BED, CALL LIGHT WITHIN TO REACH, SAFETY PRECAUTION MAINTAINED ALL THE TIME.
[2018-10-14] MEDS: ENSURE ENLIVE 237 ML LIQUID (VANILLA) PO SCH ×3 (09:10→16:43)
[2018-10-14] MEDS: NICOTINE PATCH (7MG) 7 MG PATCH.TD24 TD SCH (10:46)
[2018-10-14] MEDS: LEVOTHYROXINE SODIUM 125 MCG TABLET PO SCH (10:46)
[2018-10-14] MEDS: PREGABALIN 100 MG CAPSULE PO SCH ×2 (10:46→16:43)
[2018-10-14] MEDS: MEGESTROL ACETATE 40 MG TABLET PO SCH (10:47)
[2018-10-14] MEDS: DOCUSATE SODIUM 100 MG CAPSULE PO SCH ×2 (10:47→16:42)
[2018-10-14] MEDS: TRAMADOL HCL 50 MG TABLET PO SCH ×2 (10:47→16:43)
[2018-10-14] MEDS: PANTOPRAZOLE 40 MG TABLET.DR PO SCH (10:47)
[2018-10-14] MEDS: TOPIRAMATE 25 MG TABLET PO SCH (10:47)
[2018-10-14] MEDS: ESCITALOPRAM OXALATE (10 MG) 10 MG TABLET PO SCH (10:47)
[2018-10-14] MEDS: FLUTICASONE/VILANTEROL 1 EACH BLST.W.DEV IH SCH (10:51)
[2018-10-14] MEDS: HYDROCODONE/APAP 10/325MG 1 EA TABLET PO PRN (11:36)
--- NOTE | 2018-10-14 11:36 | NUR ---
rn notes administered narco 10/325 mg po prn for headache, and ringing right ear, crying, per patient request, v/s taken bp-115/70, p-80. continued monitoring.
--- NOTE | 2018-10-14 13:00 | NUR ---
RN NOTES PATIENT IN THE BED MEDICATION WERE ADMINISTERED FOR PAIN EFFECTIVE, SEEN PATIENT BY DR CHAVARRIA, NEW ORDER TAKEN AND CARRIED OUT, PATIENT REFUSED HEADACHE , AND EAR RINGING AT THIS TIME. INFUSING D5 1/2 AT 50 ML/HR INTACT, PATIENT AMBULATORY, USING CANE, CALL LIGHT WITHIN TO REACH, CONTINUED MONITORING.
[2018-10-14] MEDS ORDERED: DOCU-141 PO (13:25)
[2018-10-14] MEDS ORDERED: Hydrocodone/Apap 10/325MG PO (13:25)
[2018-10-14] MEDS ORDERED: PREG100C PO (13:25)
[2018-10-14] MEDS ORDERED: ESCI10TA PO (13:25)
[2018-10-14] MEDS ORDERED: LEVO125T PO (13:25)
[2018-10-14] MEDS ORDERED: MIRT15TA PO (13:25)
[2018-10-14] MEDS ORDERED: AMIT10TA6 PO (13:25)
[2018-10-14] MEDS ORDERED: MECL12.582 PO (13:25)
[2018-10-14] MEDS ORDERED: FLUT1BLS IH (13:25)
[2018-10-14] MEDS ORDERED: MEGE40TA PO (13:25)
[2018-10-14] MEDS ORDERED: TAMS-12 PO (13:25)
[2018-10-14] MEDS ORDERED: ZOLP10TA2 PO (13:25)
[2018-10-14] MEDS ORDERED: TRAM50TA2 PO (13:25)
[2018-10-14] MEDS ORDERED: DIPH25CA49 PO (13:25)
[2018-10-14] MEDS ORDERED: PANT40TA2 PO (13:25)
[2018-10-14] MEDS ORDERED: FUROSEMIDE 20 MG/2 ML VIAL IV ONE (14:00)
[2018-10-14] MEDS ORDERED: AZITHROMYCIN 500 MG in IV D5W 250 ML IV SCH (14:00)
[2018-10-14 16:00] VITALS: BP 98/60
[2018-10-14] MEDS: AMITRIPTYLINE HCL 10 MG TABLET PO SCH (17:20)
--- NOTE | 2018-10-14 18:00 | NUR ---
RN NOTES PER NEURO MD ADJUST MEDICATION. NEW ORDERS TAKEN AND CARRIED OUT.
[2018-10-14] MEDS ORDERED: SUMATRIPTAN SUCCINATE 25 MG TABLET PO ONE (18:30)
[2018-10-14] MEDS ORDERED: AMITRIPTYLINE HCL 10 MG TABLET PO ONE (18:30)
[2018-10-14] MEDS ORDERED: ONDANSETRON HCL/PF 4 MG/2 ML VIAL IV ONE (18:30)
--- NOTE | 2018-10-14 18:30 | NUR ---
RN NOTES MEDICATION ADMINISTERED, V/S STABLE , INFUSING D5 1/2 NS AT LEFT FA INTACT. MEDICATION WERE ADMINISTERED EFFECTIVE. PATIENT WALKING IN THE HALLWAY. NEXT TO THE PATIENT. ENDORSED ONCOMING NURSE FOR PLAN OF CARE.
[2018-10-14 20:00] VITALS: BP 112/73
--- NOTE | 2018-10-14 20:19 | NUR ---
RN MS OPENING NOTES RECEIVED PT IN BED, AWAKE ALERT ORIENTED X 3-4 VENEZUELAN AND NEPALI SPEAKING. BREATHING EVEN AND UNLABORED ON ROOM AIR, NO SOB, COUGH OR CONGESTION NOTES. IV ACCESS ON THE L FA #20G WITH MULTIVITAMIN D5 1/2 NS @50ML/HR. NO COMPLAINT OF PAIN OR DISCOMFORT AT THE MOMENT, NO N/V, NEURO MD CALLED AND INFORMED OF EFFECTIVENESS OF HEADACHE MEDICATION. BED IN LOWEST LOCKED POSITION, CALL LIGHT WITHIN REACH AT ALL TIMES.
[2018-10-14] MEDS: MIRTAZAPINE 15 MG TABLET PO SCH (21:17)
[2018-10-14] MEDS: TAMSULOSIN 0.4 MG CAP.SR.24H PO SCH (21:17)
--- NOTE | 2018-10-14 21:50 | NUR ---
LYRICA CHANGED FROM BID TO QHS, LAST DOSE GIVEN AT 1700, QHS DOSE HELD.
[2018-10-14] MEDS ORDERED: PREGABALIN 100 MG CAPSULE PO SCH (22:00)
[2018-10-15 07:45] LABS: BASOPHILS % (AUTO) 0.6 % (0.0-2.0); EOSINOPHILS % (AUTO) 1.7 % (0.0-6.0); HEMATOCRIT 36 % (39-51); HEMOGLOBIN 12.3 g/dL (13.5-17.5); LYMPHOCYTES # (AUTO) 2.3 /CMM (0.8-4.8); LYMPHOCYTES % (AUTO) 33.5 % (20.0-44.0); MEAN CORPUSCULAR HGB CONC 34 g/dl (31.0-36.0); MEAN CORPUSCULAR VOLUME 93 fL (80-96); MONOCYTES # (AUTO) 0.7 /CMM (0.1-1.30); MONOCYTES % (AUTO) 10.5 % (2.0-12.0); NEUTROPHILS # (AUTO) 3.8 /CMM (1.8-8.9); NEUTROPHILS % (AUTO) 53.7 % (43.0-81.0); PLATELET COUNT (AUTO) 152 /CMM (150-450); RED BLOOD CELL COUNT(AUTO) 3.89 MIL/uL (4.5-6.0)
[2018-10-15 07:59] LABS: ALANINE AMINOTRANSFERASE 17 U/L (12-78); ALBUMIN 3.2 g/dL (3.4-5.0); ALKALINE PHOSPHATASE 48 U/L (46-116); ASPARTATE AMINOTRANSFERASE 12 U/L (15-37); BILIRUBIN,TOTAL 0.2 mg/dL (0.2-1.0); CALCIUM, SERUM 8.5 mg/dL (8.5-10.1); CARBON DIOXIDE 28 mmol/L (21-32); CHLORIDE 108 mmol/L (98-107); CREATININE 0.9 mg/dL (0.6-1.3); GLUCOSE 119 mg/dL (74-106); POTASSIUM 4.2 mmol/L (3.5-5.1); SODIUM SERUM 142 mmol/L (136-145); TOTAL PROTEIN, SERUM 6.2 g/dL (6.4-8.2); UREA NITROGEN, BLOOD 15 mg/dL (7-18)
[2018-10-15 08:00] VITALS: BP 109/59
--- NOTE | 2018-10-15 08:00 | NUR ---
RN NOTES PATIENT RECEIVED IN THE ROOM. A/O X3/4. PATIENT STABLE WANTED BACK TO SLEEP. V/S STABLE . CALL LIGHT WITHIN TO REACH. CONTINUED MONITORING.
--- NOTE | 2018-10-15 09:00 | NUR ---
RN NOTES ADMINISTERED SCHEDULED MEDICATION, PATIENT WAS COMPLAINING OF HEADACHE BUT REFUSED PAIN MEDICATION, V/S STABLE. PATIENT AMBULATING IN THE ROOM. CALL LIGHT WITHIN TO REACH, NEXT TO THE BED.
--- NOTE | 2018-10-15 09:30 | NUR ---
RN NOTES GET CALL FROM DR DOTY, PER MD ADMINISTER ZITHROMAX IV INFUSION , AND DISCHARGE PATIENT HOME. PATIENT WILL FOLLOW MD IN 5 DAYS. ORDER TAKEN AND CARRIED OUT.
[2018-10-15] MEDS: LEVOTHYROXINE SODIUM 125 MCG TABLET PO SCH (09:47)
[2018-10-15] MEDS: PANTOPRAZOLE 40 MG TABLET.DR PO SCH (09:47)
[2018-10-15] MEDS: MEGESTROL ACETATE 40 MG TABLET PO SCH (09:47)
[2018-10-15] MEDS: TRAMADOL HCL 50 MG TABLET PO SCH ×2 (09:47→16:19)
[2018-10-15] MEDS: ENSURE ENLIVE 237 ML LIQUID (VANILLA) PO SCH ×3 (09:47→16:20)
[2018-10-15] MEDS: DOCUSATE SODIUM 100 MG CAPSULE PO SCH ×2 (09:47→16:19)
[2018-10-15] MEDS: FLUTICASONE/VILANTEROL 1 EACH BLST.W.DEV IH SCH (09:48)
[2018-10-15] MEDS ORDERED: AZITHROMYCIN 500 MG in IV D5W 250 ML IV SCH (14:00)
[2018-10-15 16:00] VITALS: BP 114/74
--- NOTE | 2018-10-15 17:05 | NUR ---
DISCHARGE NOTES PATIENT DISCHARGE AT THIS TIME GOING HOME. PATIENT STABLE SCHEDULED MEDICATION ADMINISTERED, V/S STABLE. PATIENT REFUSED PAIN AT THIS TIME. MED RECONCILIATION AND DISCHARGE ORDER REVIEWED AND EXPLAINED TO PATIENT AND . VERBALIZED UNDERSTANDING. PATIENT SIGN PAPERWORK. BELONGING WITH THE PATIENT. PRESCRIPTION HANDED TO THE . PATIENT WILL FOLLOW PRIMARY MD IN 5 DAYS. ESCORTED PATIENT TO THE LOBBY FOR SAFETY, PATIENT MORTGAGE OPERATIONS MANAGER BY FAMILY.
[2018-10-15] MEDS ORDERED: AMITRIPTYLINE HCL 10 MG TABLET PO SCH (18:00)
== END 2018-10-15 17:05 | disposition home or self-care (01) | DRG 552 ==
LOC: ER 13:46 → MED 17:46 → TELE 22:16 → MED 10-12 08:54
PROVIDERS: ADMIT Family Medicine; ATTEND Family Medicine
DX: M54.81 Occipital neuralgia (principal); I13.0 Hypertensive heart and chronic kidney disease with heart failure and stage 1 through stage 4 chronic kidney disease, or unspecified chronic kidney disease; K90.9 Intestinal malabsorption, unspecified; G43.909 Migraine, unspecified, not intractable, without status migrainosus; K21.9 Gastro-esophageal reflux disease without esophagitis; R63.4 Abnormal weight loss; Z68.22 Body mass index [BMI] 22.0-22.9, adult; D63.8 Anemia in other chronic diseases classified elsewhere; Z85.51 Personal history of malignant neoplasm of bladder; M54.5 Low back pain; Z91.81 History of falling; K59.00 Constipation, unspecified; M53.1 Cervicobrachial syndrome; M53.0 Cervicocranial syndrome; K40.90 Unilateral inguinal hernia, without obstruction or gangrene, not specified as recurrent; F03.90 Unspecified dementia, unspecified severity, without behavioral disturbance, psychotic disturbance, mood disturbance, and anxiety; R32 Unspecified urinary incontinence; F41.9 Anxiety disorder, unspecified; E11.22 Type 2 diabetes mellitus with diabetic chronic kidney disease; E78.5 Hyperlipidemia, unspecified; F17.210 Nicotine dependence, cigarettes, uncomplicated; F41.0 Panic disorder [episodic paroxysmal anxiety]; F43.10 Post-traumatic stress disorder, unspecified; I50.9 Heart failure, unspecified; M81.0 Age-related osteoporosis without current pathological fracture; N18.9 Chronic kidney disease, unspecified; H93.19 Tinnitus, unspecified ear; H70.10 Chronic mastoiditis, unspecified ear; G31.9 Degenerative disease of nervous system, unspecified; F90.9 Attention-deficit hyperactivity disorder, unspecified type; Z86.73 Personal history of transient ischemic attack (TIA), and cerebral infarction without residual deficits; Z87.11 Personal history of peptic ulcer disease; Z79.51 Long term (current) use of inhaled steroids; Z79.82 Long term (current) use of aspirin; I25.10 Atherosclerotic heart disease of native coronary artery without angina pectoris; J44.9 Chronic obstructive pulmonary disease, unspecified; N40.0 Benign prostatic hyperplasia without lower urinary tract symptoms
CPT/HCPCS: 36415; 70496-TC; 71045-TC; 72040-TC; 72170-TC; 74021; 80048-TC; 80053-TC; 80076-TC; 81000-TC; 82378; 82962-TC; 83540-TC; 83735-TC; 83880; 84153-TC; 84154-TC; 84443-TC; 84484-TC; 85025-TC; 85652-TC; 85730-TC; 86140-TC; 87081-TC; 93307-TC; G0378; J0456; J1940; J2270; J2405; J3475; J3490; J7030; J7050; J7060; Q0163; Q9967

== ENCOUNTER 2019-02-11 16:39 | Emergency (ER) | payer MEDICARE, OTHER ==
[~2019-02-11] VITALS: Ht 170.2 cm; Wt 52.6 kg
[~2019-02-11 16:39] MED LIST changes: +AMIT10TA6 PO; -ASPI-1169 PO; -BICA50TA8 PO; -BUDE90AE IH; +DIPH25CA46 PO; +DIPH25CA49 PO; +DOCU-141 PO; -DONE5TAB34 PO; -ERGO500014 PO; +ESCI10TA PO; +FLUT1DIS3 IH; +HYDR-4354 PO; +Hydrocodone/Apap 10/325MG PO; +LEVO125T PO; +MECL12.582 PO; +MEGE40TA PO; -MEMA5TAB PO; +MIRT15TA PO; +NEBI5TAB8 PO; +PANT40TA2 PO; +PREG100C PO; -TIOT4MIS3 IH; +TOPI25TA49 PO; +TRAM50TA2 PO; +ZOLP10TA2 PO; -[UNRECOGNIZED DRUG - CODE] PO
--- NOTE | 2019-02-11 17:02 | NUR ---
sob x 4 months, no change, smoker, 02 100% ON RA. SWEDISH-SPEAKING, AOX4, VSS, AMBULATORY. FAMILY AT BEDSIDE. READY FOR EVAL.
[2019-02-11 17:41] LABS: BASOPHILS # (AUTO) 0.1 /CMM (0.0-0.2); EOSINOPHILS % (AUTO) 2.9 % (0.0-6.0); HEMATOCRIT 37 % (39-51); HEMOGLOBIN 12.2 g/dL (13.5-17.5); LYMPHOCYTES % (AUTO) 34.5 % (20.0-44.0); MEAN CORPUSCULAR HGB CONC 34 g/dl (31.0-36.0); MEAN CORPUSCULAR VOLUME 88 fL (80-96); MONOCYTES # (AUTO) 0.5 /CMM (0.1-1.30); MONOCYTES % (AUTO) 8.2 % (2.0-12.0); NEUTROPHILS # (AUTO) 3.1 /CMM (1.8-8.9); NEUTROPHILS % (AUTO) 53.4 % (43.0-81.0); PLATELET COUNT (AUTO) 259 /CMM (150-450); RED BLOOD CELL COUNT(AUTO) 4.13 MIL/uL (4.5-6.0); WHITE BLOOD COUNT (AUTO) 5.8 K/uL (4.3-11.0)
[2019-02-11 17:47] LABS: CALCIUM, SERUM 8.6 mg/dL (8.5-10.1); CARBON DIOXIDE 25 mmol/L (21-32); CHLORIDE 108 mmol/L (98-107); CREATININE 0.9 mg/dL (0.6-1.3); GLUCOSE 165 mg/dL (74-106); POTASSIUM 3.9 mmol/L (3.5-5.1); SODIUM SERUM 145 mmol/L (136-145); UREA NITROGEN, BLOOD 16 mg/dL (7-18)
[2019-02-11 18:02] LABS: B-TYPE NATRIURETIC PEPTIDE 26 PG/ML (0-125)
--- NOTE | 2019-02-11 19:08 | NUR ---
PT SITTING COMFORTABLY IN BED. NO COMPLAINTS AT THIS TIME. VSS.
--- NOTE | 2019-02-11 19:15 | NUR ---
CALLED , TRANSFERRED CALL TO
--- NOTE | 2019-02-11 20:04 | NUR ---
IV removed. Catheter intact and site benign. Pressure and 4x4 applied to site. No bleeding noted.Patient discharged to home in stable condition. Written and verbal after care instructions given. Patient verbalizes understanding of instruction.
[2019-02-11 20:37] VITALS: BP 112/74
== END 2019-02-11 20:04 | disposition home or self-care (01) ==
LOC: ER 16:44
DX: R06.02 Shortness of breath (principal); G43.909 Migraine, unspecified, not intractable, without status migrainosus; I10 Essential (primary) hypertension; K21.9 Gastro-esophageal reflux disease without esophagitis; F32.9 Major depressive disorder, single episode, unspecified; J44.9 Chronic obstructive pulmonary disease, unspecified; G40.909 Epilepsy, unspecified, not intractable, without status epilepticus; F17.210 Nicotine dependence, cigarettes, uncomplicated; Z90.89 Acquired absence of other organs; Z85.46 Personal history of malignant neoplasm of prostate
CPT/HCPCS: 36415; 71045-TC; 80048-TC; 83880; 84484-TC; 85025-TC; 85730-TC

== ENCOUNTER 2019-04-05 15:09 | Inpatient (IN) | payer MEDICARE, OTHER ==
[~2019-04-05] VITALS: Ht 160 cm; Wt 52.8 kg
[~2019-04-05 15:09] MED LIST changes: -DIPH25CA46 PO; -DIPH25CA49 PO; -ESCI10TA PO; -ESOM40CA52 PO; -FLUT1BLS IH; -LEVO100T9 PO; -MECL-118 PO; -MECL12.582 PO; -MIRT15TA PO; -PANT40TA2 PO; -PREG100C PO; -ZOLP10TA2 PO
--- NOTE | 2019-04-05 15:09 | NUR ---
BIB FAMILY SENT BY FOR STROKE EVALUATION, TO ER BED 10, HOOKED TO MONITOR, CHANGED TO GOWN, PROVIDED W WARM BLANKET, AWAITING MD HUIZAR.
--- NOTE | 2019-04-05 15:37 | NUR ---
DR HOWARD AT BEDSIDE
[2019-04-05] MEDS ORDERED: ASPI-605 PO (15:53)
[2019-04-05] MEDS ORDERED: DIPH50CA38 PO (15:53)
[2019-04-05] MEDS ORDERED: ESOM20CA PO (15:53)
[2019-04-05] MEDS ORDERED: QUET25TA PO (15:53)
[2019-04-05] MEDS ORDERED: ESCI10TA PO (15:53)
[2019-04-05] MEDS ORDERED: KETOROLAC TROMETHAMINE INJ 30 MG/ML VIAL IV ONE (16:00)
[2019-04-05] MEDS ORDERED: ONDANSETRON HCL/PF 4 MG/2 ML VIAL IVP ONE (16:00)
[2019-04-05] MEDS ORDERED: IV NS 0.9% 1,000 ML BAG IV ONE (16:00)
[2019-04-05] MEDS ORDERED: ONDANSETRON HCL/PF 4 MG/2 ML VIAL ONE (16:11)
[2019-04-05] MEDS ORDERED: KETOROLAC TROMETHAMINE 15 MG/ML VIAL ONE (16:11)
[2019-04-05 16:16] LABS: BASOPHILS # (AUTO) 0.1 /CMM (0.0-0.2); BASOPHILS % (AUTO) 0.8 % (0.0-2.0); EOSINOPHILS % (AUTO) 0.8 % (0.0-6.0); HEMATOCRIT 39 % (39-51); HEMOGLOBIN 13.4 g/dL (13.5-17.5); LYMPHOCYTES # (AUTO) 1.9 /CMM (0.8-4.8); LYMPHOCYTES % (AUTO) 26.8 % (20.0-44.0); MEAN CORPUSCULAR HGB CONC 34 g/dl (31.0-36.0); MEAN CORPUSCULAR VOLUME 93 fL (80-96); MONOCYTES # (AUTO) 0.5 /CMM (0.1-1.30); MONOCYTES % (AUTO) 6.9 % (2.0-12.0); NEUTROPHILS # (AUTO) 4.5 /CMM (1.8-8.9); NEUTROPHILS % (AUTO) 64.7 % (43.0-81.0); PLATELET COUNT (AUTO) 211 /CMM (150-450); RED BLOOD CELL COUNT(AUTO) 4.19 MIL/uL (4.5-6.0)
--- NOTE | 2019-04-05 16:27 | NUR ---
PT AMBULATED TO RESTROOM W ASSISTANCE. PROVIDED URINE SAMPLE. SENT TO LAB
[2019-04-05 16:39] LABS: ALANINE AMINOTRANSFERASE 17 U/L (12-78); ALBUMIN 4.2 g/dL (3.4-5.0); ALKALINE PHOSPHATASE 41 U/L (46-116); ASPARTATE AMINOTRANSFERASE 13 U/L (15-37); BILIRUBIN,DIRECT 0.1 mg/dL (0.0-0.2); BILIRUBIN,TOTAL 0.5 mg/dL (0.2-1.0); CALCIUM, SERUM 9.3 mg/dL (8.5-10.1); CARBON DIOXIDE 29 mmol/L (21-32); CHLORIDE 104 mmol/L (98-107); GLUCOSE 113 mg/dL (74-106); LIPASE 333 U/L (73-393); POTASSIUM 4.6 mmol/L (3.5-5.1); SODIUM SERUM 139 mmol/L (136-145); TOTAL PROTEIN, SERUM 7.5 g/dL (6.4-8.2); UREA NITROGEN, BLOOD 13 mg/dL (7-18)
[2019-04-05 16:48] LABS: APPEARANCE,URINE Clear (CLEAR); BILIRUBIN,URINE SMALL (NEGATIVE); BLOOD, URINE Negative Ery/uL (NEGATIVE); COLOR,URINE Yellow (YELLOW); KETONES,URINE 15 (NEGATIVE); LEUKOCYTE ESTERASE ,URINE Negative (NEGATIVE); NITRITE, URINE Negative (NEGATIVE); PROTEIN,URINE 30 mg/dl (NEGATIVE); UGLUCOSE Negative (NEGATIVE); UROBILINOGEN,URINE 0.2 EU/dL (0.2)
--- NOTE | 2019-04-05 16:56 | NUR ---
[id number] [facility]
--- NOTE | 2019-04-05 17:46 | NUR ---
REPORT GIVEN TO HUEY SIDHU OF MED-SURG UNIT
--- NOTE | 2019-04-05 18:40 | NUR ---
RECEIVED PT FROM ER -ALERT AND ORIENTED.AMBULATES WITH ONLY(REFUSED TO BE ASSISTED BY ) USING CANE. AND GRANDCHILDREN AT THE BEDSIDE.TURKMEN AND UZBEK SPEAKING ONLY.PT VOIDED IN THE TOILET ACCOMPANIED BY .DENIES ANY PAIN,DISCOMFORT OR DISTRESS AT THIS TIME.ORIENTED TO HIS OWN ROOM AND USE OF CALL LIGHT.IV H/L INTACT TO RT AC.PT AMBULATED ALONG THE HALLWAY WITH SLOW,STEADY GAIT USING CANE ACCOMPANIED BY HIS WITHOUT ANY DISCOMFORT OR DISTRESS.WITH STABLE V/S.PT EATING DINNER -SOFT CARDIAC DIET-BEING FED BY HIS .PT TOLERATING WELL.WILL ENDORSE TO NIGHT NURSE,OREN'S CARE.CALL LIGHT PLACED WITHIN REACH.
--- NOTE | 2019-04-05 19:30 | NUR ---
RN OPEN NOTES RECEIVED PATIENT AWAKE IN BED WITH FAMILY AT BEDSIDE. A/OX3. NO SIGNS OF DISTRESS OR DISCOMFORT. BREATHING EVEN AND UNLABORED. IV ACCESS IN RAC, PATENT AND INTACT, NO SIGNS OF REDNESS OR INFILTRATION. BED IN LOW LOCKED POSITION WITH SIDE RAILS X2. CALL LIGHT WITHIN REACH. WILL CONTINUE TO MONITOR.
[2019-04-05 20:00] VITALS: BP 113/73
[2019-04-05] MEDS ORDERED: IPRATROPIUM NEB FS 0.5 MG/2.5 ML AMPUL.NEB NEB PRN (21:00)
[2019-04-05] MEDS ORDERED: ALBUTEROL FS 2.5 MG/0.5 ML VIAL.NEB NEB SCH (21:00)
[2019-04-05] MEDS ORDERED: MVI-12 10ML IV ONE (21:00)
[2019-04-05] MEDS ORDERED: ALBUTEROL FS 2.5 MG/0.5 ML VIAL.NEB NEB PRN (21:00)
[2019-04-05] MEDS ORDERED: IPRATROPIUM NEB FS 0.5 MG/2.5 ML AMPUL.NEB NEB SCH (21:00)
[2019-04-05] MEDS ORDERED: diphenhydrAMINE HCL 50 MG CAPSULE PO PRN (21:30)
[2019-04-05] MEDS: QUETIAPINE FUMARATE 25 MG TABLET PO SCH (22:00)
[2019-04-05] MEDS ORDERED: MIRTAZAPINE 15 MG TABLET PO PRN (22:00)
[2019-04-05] MEDS ORDERED: IV D5W 1,000 ML IV SCH (22:00)
[2019-04-05] MEDS: PREGABALIN 25 MG CAPSULE PO SCH (22:33)
[2019-04-05] MEDS: MVI ADULT IV SCH (22:34)
[2019-04-05] MEDS: Folic acid 1 MG in IV D5W 50 ML IV SCH (22:34)
[2019-04-05] MEDS: D5W IV SCH (22:34)
[2019-04-05 22:52] LABS: THYROID STIMULATING HORMONE 10.355 uIU/mL (0.358-3.74)
[2019-04-05] MEDS: ZOLPIDEM TARTRATE 10 MG TABLET PO PRN (22:56)
[2019-04-05] MEDS ORDERED: HYDROCODONE/APAP 10/325MG 1 EA TABLET PO PRN (23:30)
[2019-04-05] MEDS: Thiamine 100 MG in IV D5W 50 ML IV SCH (23:38)
[2019-04-05] MEDS: IPRATROPIUM NEB FS 0.5 MG/2.5 ML AMPUL.NEB NEB SCH (23:51)
[2019-04-05] MEDS: ALBUTEROL FS 2.5 MG/0.5 ML VIAL.NEB NEB SCH (23:51)
--- NOTE | 2019-04-06 00:01 | NUR ---
RT PATIENT REFUSED ABG ,RN WAS NOTIFIED.PATIENT STABLE AT THIS TIME .SPO2 98%. Addendum: 04/06/19 at 0003 by DESI MACIEL RT Amended: Links added.
[2019-04-06 00:22] VITALS: BP 107/70
[2019-04-06 04:06] VITALS: BP 103/56
[2019-04-06] MEDS ORDERED: TRAMADOL HCL 50 MG TABLET ONE (05:09)
--- NOTE | 2019-04-06 05:20 | NUR ---
RN NOTES ADMINISTERED TRAMADOL 50MG ORDERED AT PATIENT REQUEST FOR HEADACHE 03/27. VSS. WILL CONTINUE TO MONITOR.
[2019-04-06 06:53] LABS: BASOPHILS % (AUTO) 0.5 % (0.0-2.0); EOSINOPHILS % (AUTO) 1.8 % (0.0-6.0); HEMATOCRIT 34 % (39-51); HEMOGLOBIN 11.8 g/dL (13.5-17.5); LYMPHOCYTES # (AUTO) 2.2 /CMM (0.8-4.8); MEAN CORPUSCULAR HGB CONC 35 g/dl (31.0-36.0); MEAN CORPUSCULAR VOLUME 93 fL (80-96); MONOCYTES # (AUTO) 0.5 /CMM (0.1-1.30); MONOCYTES % (AUTO) 7.7 % (2.0-12.0); NEUTROPHILS # (AUTO) 3.3 /CMM (1.8-8.9); PLATELET COUNT (AUTO) 177 /CMM (150-450); RED BLOOD CELL COUNT(AUTO) 3.67 MIL/uL (4.5-6.0)
--- NOTE | 2019-04-06 06:53 | NUR ---
RN CLOSING NOTES PATIENT AWAKE IN BED WITH FAMILY AT BEDSIDE. A/OX3. NO SIGNS OF DISTRESS OR DISCOMFORT. BREATHING EVEN AND UNLABORED. IV ACCESS IN RAC WITH D5W W/MVI INFUSING, PATENT AND INTACT, NO SIGNS OF REDNESS OR INFILTRATION. ALL NEEDS MET. NO SIGNIFICANT CHANGES THROUGH THE NIGHT. BED IN LOW LOCKED POSITION WITH SIDE RAILS X2. CALL LIGHT WITHIN REACH. WILL ENDORSE TO AM SHIFT FOR WERNER. Addendum: 04/06/19 at 0732 by OREN FLORES RN PT ON TELE MONITORING WITH SR 66 NOTED.
[2019-04-06 06:55] LABS: CALCIUM, SERUM 8.7 mg/dL (8.5-10.1); CARBON DIOXIDE 22 mmol/L (21-32); CHLORIDE 105 mmol/L (98-107); CREATININE 0.9 mg/dL (0.6-1.3); GLUCOSE 119 mg/dL (74-106); SODIUM SERUM 138 mmol/L (136-145); UREA NITROGEN, BLOOD 14 mg/dL (7-18)
[2019-04-06] MEDS: FAMOTIDINE (20 MG) 20 MG TABLET PO SCH ×2 (07:30→08:37)
[2019-04-06] MEDS: ALBUTEROL FS 2.5 MG/0.5 ML VIAL.NEB NEB SCH ×3 (07:46→23:22)
[2019-04-06] MEDS: IPRATROPIUM NEB FS 0.5 MG/2.5 ML AMPUL.NEB NEB SCH ×3 (07:46→23:21)
[2019-04-06] MEDS ORDERED: LORATADINE 10 MG TABLET PO PRN (08:00)
--- NOTE | 2019-04-06 08:00 | NUR ---
PENSION FUND MANAGER AM NOTES RECEIVED PATIENT AWAKE IN BED WITH FAMILY AT BEDSIDE. A/OX3. DENIES ANY DISTRESS OR DISCOMFORT. BREATHING EVEN AND UNLABORED. IV ACCESS IN RAC, PATENT AND INTACT, WITH IVF D5W WITH MVI AT 40 ML/HR INFUSING WELL.NO SIGNS OF REDNESS OR INFILTRATION. AMBULATING ALONG THE HALLWAY WITH WITH SLOW,STEADY GAIT.BED IN LOW LOCKED POSITION WITH SIDE RAILS X2. CALL LIGHT WITHIN REACH. WILL CONTINUE TO MONITOR.
[2019-04-06] MEDS ORDERED: AMIT10TA6 PO (08:05)
[2019-04-06 08:09] VITALS: BP 113/68
[2019-04-06] MEDS: PREGABALIN 25 MG CAPSULE PO SCH ×2 (08:36→17:21)
[2019-04-06] MEDS: MEGESTROL ACETATE 40 MG TABLET PO SCH ×2 (08:36→17:21)
[2019-04-06] MEDS: ASPIRIN EC 81 MG TABLET.DR PO SCH (08:36)
[2019-04-06] MEDS: NICOTINE PATCH (14MG) 14 MG PATCH.TD24 TD SCH (08:36)
[2019-04-06] MEDS: TOPIRAMATE 25 MG TABLET PO SCH (08:36)
[2019-04-06] MEDS: LEVOTHYROXINE SODIUM 125 MCG TABLET PO SCH (08:37)
[2019-04-06] MEDS: METOPROLOL TARTRATE 25 MG TABLET PO SCH ×3 (08:37→20:25)
[2019-04-06] MEDS: FLUTICASONE/VILANTEROL 1 EACH BLST.W.DEV IH SCH (08:39)
[2019-04-06] MEDS ORDERED: DOCUSATE SODIUM 100 MG CAPSULE PO SCH (09:00)
[2019-04-06] MEDS ORDERED: TRAMADOL HCL 50 MG TABLET PO PRN (09:00)
[2019-04-06] MEDS ORDERED: MINERAL OIL 133 ML (PYXIS) 1 EA ENEMA RC ONE (11:00)
[2019-04-06] MEDS: ENSURE ENLIVE 237 ML LIQUID (VANILLA) PO SCH ×2 (12:29→17:21)
[2019-04-06 16:00] VITALS: BP 122/70
[2019-04-06] MEDS: AMITRIPTYLINE HCL 10 MG TABLET PO SCH ×2 (17:35→18:00)
[2019-04-06] MEDS: TRAMADOL HCL 50 MG TABLET PO PRN (18:27)
[2019-04-06] MEDS ORDERED: SENNOSIDES/DOCUSATE SODIUM 1 TAB TABLET PO SCH (18:30)
[2019-04-06] MEDS ORDERED: SENNOSIDES/DOCUSATE SODIUM 1 TAB TABLET PO PRN (18:30)
--- NOTE | 2019-04-06 18:40 | NUR ---
PT DENIES ANY PAIN OR DISTRESS SITTING AT THE EDGE OF THE BED.PT'S C/O THAT PT HAS DIFFICULTY MOVING HIS BOWELS-NOTIFIED DR DOTY WITH ORDERS CARRIED OUT. AT THE BEDSIDE FEEDING THE PT.CALL LIGHT PLACED WITHIN REACH.
--- NOTE | 2019-04-06 19:21 | NUR ---
PT'S C/O PT HAS SEVERE MIGRAINE HEADACHE AND CONSTIPATION.CALLED DR DOTY AND MADE AWARE WITH ORDERS MADE AND CARRIED OUT.MOVANTIK MEDICATION IS NOT AVAILABLE IN OUR PHARMACY.ENDORSED TO NIGHT NURSE CARE.
[2019-04-06] MEDS ORDERED: HYDROCODONE/APAP 10/325MG 1 EA TABLET PO PRN (19:30)
[2019-04-06] MEDS ORDERED: HYDROCODONE/APAP 10/325MG 1 EA TABLET PO ONE (19:45)
--- NOTE | 2019-04-06 19:57 | NUR ---
AGENT TICKETING GATE OPENING NOTES RECEIVED PATIENT IN BED AWAKE, ALERT AND ORIENTED X3, VERBALLY RESPONSIVE, ABLE TO MAKE NEEDS KNOWN. AT BEDSIDE. BREATHING EVEN AND UNLABORED. NO SOB NOTED. TOLERATING ROOM AIR. IV ON RIGHT HAND INTACT AND PATENT WITH IV MVI INFUSING. CURRENTLY DENIES PAIN AND DISCOMFORT. SKIN DRY AND WARM TO TOUCH. AFEBRILE. SR ON TELE MONITOR. PATIENT IS AMBULATORY AND CURRENTLY GETTING READY TO WALK WITH AROUND THE UNIT. ALL OTHER NEEDS MET. SAFETY MEASURES IN PLACE. CALL LIGHT WITHIN REACH. WILL CONTINUE TO MONITOR.
[2019-04-06 20:00] VITALS: BP 118/73
[2019-04-06] MEDS ORDERED: DOCUSATE SODIUM 100 MG CAPSULE PO ONE (20:00)
[2019-04-06] MEDS: Folic acid 1 MG in IV D5W 50 ML IV SCH (20:29)
[2019-04-06] MEDS: MVI ADULT IV SCH (21:29)
[2019-04-06] MEDS: D5W IV SCH (21:29)
[2019-04-06] MEDS: TAMSULOSIN 0.4 MG CAP.SR.24H PO SCH (21:31)
[2019-04-06] MEDS: Thiamine 100 MG in IV D5W 50 ML IV SCH (21:31)
[2019-04-06] MEDS: QUETIAPINE FUMARATE 25 MG TABLET PO SCH (21:31)
--- NOTE | 2019-04-06 21:53 | NUR ---
MANAGER DISTRIBUTION CENTER NOTES DID NOT CHANGE CURRENT IV MVI BAG. THERE IS STILL ONE CURRENTLY INFUSING. WILL CONTINUE TO MONITOR.
[2019-04-06] MEDS: ZOLPIDEM TARTRATE 10 MG TABLET PO PRN (21:55)
--- NOTE | 2019-04-06 23:24 | NUR ---
ACIDITY TESTER NOTES PATIENT REFUSED BREATHING TREATMENT. O2SAT 98% ON RA. WILL CONTINUE TO MONITOR.
[2019-04-06 23:58] VITALS: BP 93/53
[2019-04-07 04:00] VITALS: BP 108/67
--- NOTE | 2019-04-07 05:37 | NUR ---
TEXTED DR. RAHMAN FOR MRI APPROVAL.
[2019-04-07 06:48] LABS: ALANINE AMINOTRANSFERASE 17 U/L (12-78); ALBUMIN 3.7 g/dL (3.4-5.0); ALKALINE PHOSPHATASE 32 U/L (46-116); ASPARTATE AMINOTRANSFERASE 10 U/L (15-37); BILIRUBIN,TOTAL 0.4 mg/dL (0.2-1.0); CALCIUM, SERUM 9.1 mg/dL (8.5-10.1); CARBON DIOXIDE 29 mmol/L (21-32); CHLORIDE 105 mmol/L (98-107); GLUCOSE 148 mg/dL (74-106); SODIUM SERUM 140 mmol/L (136-145); TOTAL PROTEIN, SERUM 6.5 g/dL (6.4-8.2); UREA NITROGEN, BLOOD 12 mg/dL (7-18)
--- NOTE | 2019-04-07 07:02 | NUR ---
CONTACT LENS ASSISTANT CLOSING NOTES PATIENT RESTING IN BED. NO ACUTE CHANGES THROUGHOUT SHIFT. AT BEDSIDE. BREATHING EVEN AND UNLABORED. NO SOB NOTED. TOLERATING ROOM AIR. IV ON RIGHT HAND INTACT AND PATENT WITH IV MVI INFUSING. CURRENTLY DENIES PAIN AND DISCOMFORT. SR ON TELE MONITOR. ALL OTHER NEEDS MET. SAFETY MEASURES IN PLACE. CALL LIGHT WITHIN REACH. WILL ENDORSE TO ONCOMING NURSE FOR WERNER.
--- NOTE | 2019-04-07 07:14 | NUR ---
BUDGET MANAGER NOTES PATIENT COMPLAINED OF NAUSEA AND VOMITING. WITNESSED PATIENT VOMIT BUT ONLY ABOUT 20CC - ALMOST WHITE IN COLOR. PAGED DR. DOTY FOR N/V PRN ORDER. WENT TO VOICEMAIL. LEFT MESSAGE. WILL ENDORSE TO THEA CANSECO.
[2019-04-07] MEDS: ALBUTEROL FS 2.5 MG/0.5 ML VIAL.NEB NEB SCH ×3 (07:35→23:14)
[2019-04-07] MEDS: IPRATROPIUM NEB FS 0.5 MG/2.5 ML AMPUL.NEB NEB SCH ×3 (07:35→23:14)
[2019-04-07 08:00] VITALS: BP 108/68
[2019-04-07] MEDS: ENSURE ENLIVE 237 ML LIQUID (VANILLA) PO SCH ×3 (08:00→18:41)
[2019-04-07] MEDS: POLYETHYLENE GLYCOL 3350 17 GM POWD.PACK PO SCH ×3 (09:00→18:42)
[2019-04-07] MEDS: DOCUSATE SODIUM 100 MG CAPSULE PO SCH ×2 (09:00→17:00)
[2019-04-07] MEDS: TOPIRAMATE 25 MG TABLET PO SCH (09:00)
[2019-04-07] MEDS: METOPROLOL TARTRATE 25 MG TABLET PO SCH ×2 (09:00→21:00)
[2019-04-07] MEDS: FLUTICASONE/VILANTEROL 1 EACH BLST.W.DEV IH SCH (09:00)
[2019-04-07] MEDS: MEGESTROL ACETATE 40 MG TABLET PO SCH ×2 (09:10→18:42)
[2019-04-07] MEDS: PREGABALIN 25 MG CAPSULE PO SCH ×2 (09:10→18:42)
[2019-04-07] MEDS: FAMOTIDINE (20 MG) 20 MG TABLET PO SCH (09:11)
[2019-04-07] MEDS: ASPIRIN EC 81 MG TABLET.DR PO SCH (09:11)
[2019-04-07] MEDS: LEVOTHYROXINE SODIUM 125 MCG TABLET PO SCH (09:11)
[2019-04-07] MEDS: NICOTINE PATCH (14MG) 14 MG PATCH.TD24 TD SCH (09:25)
--- NOTE | 2019-04-07 10:57 | NUR ---
RN NOTE REPORT GIVEN TO THEA BOND.
--- NOTE | 2019-04-07 11:29 | NUR ---
PHARMACY SALES ASSISTANT NOTE RECEIVED REPORT FROM AJITH RN. PATIENT IN NO ACUTE DISTRESS. NO SOB NOTED. PATIENT BREATHING IS EVEN AND UNLABORED. PATIENT IN NO PAIN AT THIS TIME. WILL CONTINUE TO MONITOR
--- NOTE | 2019-04-07 11:41 | NUR ---
MS COPS NURSE NOTE PER ANEAL FROM MRI, HE IS AWAITING APPROVAL FROM [facility] THEN HE WILL BE ABLE TO DO ORDERED MRIS. HE WILL CALL [facility] WITH UPDATE LATER TODAY.
[2019-04-07 12:00] VITALS: BP 119/66
[2019-04-07] MEDS ORDERED: SOD FERRIC GLUC 125 MG in IV NS 0.9% 100 ML IV SCH (14:00)
--- NOTE | 2019-04-07 15:13 | NUR ---
HOT PUNCH PRESS OPERATOR NOTE PATIENT WENT TO MRI. PATIENT REFUSED MRI AFTER TRYING A COUPLE TIMES DUE TO THE ANXIETY AND FRUSTRATION OD DOING THE MRI. NOTIFIED WILL CONTINUE TO MONITOR. Addendum: 04/07/19 at 1519 by VARUN JOHNSON RN HOT PUNCH PRESS OPERATOR NOTE PATIENT WENT TO MRI. PATIENT REFUSED MRI AFTER TRYING A COUPLE TIMES DUE TO THE ANXIETY AND FRUSTRATION OF DOING THE MRI. NOTIFIED. WILL CONTINUE TO MONITOR.
[2019-04-07 16:00] VITALS: BP 143/79
[2019-04-07] MEDS: AMITRIPTYLINE HCL 10 MG TABLET PO SCH (18:42)
--- NOTE | 2019-04-07 19:05 | NUR ---
AIRDROP SYSTEMS TECHNICIAN CLOSING NOTE PATIENT IN BED RESTING, BREATHING ON ROOM AIR SATURATING >95% SPO2. PATIENT IN NO ACUTE DISTRESS. NO SOB NOTED. PATIENT BREATHING IS EVEN AND UNLABORED. PATIENT AT THE BEDSIDE. PATIENT TAJIK SPEAKING, USED TV HOST. PATIENT IV INTACT. SAFETY PRECAUTIONS IN PLACE. PATIENT ON CARDIAC MONITORING SINUS RHYTHM 80. PATIENT STATES NO PAIN AT THIS TIME. ALL NURSING NEEDS MET. PATIENT KEPT CLEAN, DRY, AND COMFORTABLE. PATIENT BED IS LOCKED AND IN LOWEST POSITION. CALL LIGHT WITHIN REACH. WILL ENDORSE CARE TO PM SHIFT FOR WERNER.
[2019-04-07 20:00] VITALS: BP 104/63
--- NOTE | 2019-04-07 20:00 | NUR ---
RECORDINGS LIBRARIAN NOTES RECEIVED PATIENT AWAKE IN BED WITH NO DISTRESS NOTED. CALL LIGHT WITHIN REACH. FAMILY AT BEDSIDE. NO C/O PAIN OR DISCOMFORT. PERIPHERAL LINE INTACT AND PATENT. NO CHANGE IN LOC. NO C/O CHEST PAIN, DIZZINESS, AGUILERA. ENCOURAGED USE OF CALL LIGHT FOR ASSISTANCE AND DEMONSTRATED GOOD UNDERSTANDING. BED IN LOW LOCK SETTING. ROOM FREE OF CLUTTER AND BELONGINGS KEPT NEAR BEDSIDE. WILL CONTINUE TO MONITOR.
[2019-04-07] MEDS: QUETIAPINE FUMARATE 25 MG TABLET PO SCH (20:56)
[2019-04-07] MEDS: TRAMADOL HCL 50 MG TABLET PO PRN (20:56)
[2019-04-07] MEDS: Folic acid 1 MG in IV D5W 50 ML IV SCH (20:57)
[2019-04-07] MEDS: TAMSULOSIN 0.4 MG CAP.SR.24H PO SCH (20:57)
[2019-04-07] MEDS: D5W IV SCH (21:54)
[2019-04-07] MEDS: ZOLPIDEM TARTRATE 10 MG TABLET PO PRN (21:54)
[2019-04-07] MEDS: MVI ADULT IV SCH (21:54)
[2019-04-07] MEDS: Thiamine 100 MG in IV D5W 50 ML IV SCH (22:00)
--- NOTE | 2019-04-07 22:00 | NUR ---
RN NOTES RECEIVED PATIENT ASLEEP, RESTING COMFORTABLY, NO SIGNS OF ACUTE CARDIAC OR RESPIRATORY DISTRESS NOTED, EXTERNAL MONITOR READS SINUS RHYTHM HR 70s, ASPIRATION PRECAUTION EMPHASIZED, SAFETY MEASURES IN PLACE, CALL LIGHT WITHIN EASY REACH, BED IN LOW LOCKED POSITION, AT BEDSIDE, ALL NEEDS ANTICIPATED, WILL CONTINUE TO MONITOR ACCORDINGLY.
[2019-04-08] VITALS: BP 90/54
--- NOTE | 2019-04-08 00:10 | NUR ---
RN NOTES SEEN AND EXAMINED BY NEUROLOGIST, DR. NI, WITH ORDERS MADE. PATIENT IS ASLEEP AT THIS TIME, NO SIGNS OF PAIN OR DISCOMFORT, AT BEDSIDE, WILL CONTINUE TO MONITOR.
[2019-04-08 04:22] VITALS: BP_SYST 101; BP_SYST 106; BP_DIAS 51; BP_DIAS 63
[2019-04-08] MEDS: TRAMADOL HCL 50 MG TABLET PO PRN (06:29)
--- NOTE | 2019-04-08 07:20 | NUR ---
RN NOTES ALL NEEDS ATTENDED AND MET ABLE TO REST AND SLEPT WITH LONG INTERVALS, TRAMADOL GIVEN AT 0629 FOR SEVERE HEADACHE, PATIENT IS RESTING COMFORTABLY AT THIS TIME WILL ENDORSE TO AM NURSE FOR CONTINUITY OF CARE.
[2019-04-08] MEDS: ALBUTEROL FS 2.5 MG/0.5 ML VIAL.NEB NEB SCH (07:53)
[2019-04-08] MEDS: IPRATROPIUM NEB FS 0.5 MG/2.5 ML AMPUL.NEB NEB SCH (07:53)
[2019-04-08 08:00] VITALS: BP 92/56
--- NOTE | 2019-04-08 08:00 | NUR ---
RN NOTES RECEIVED PATIENT IN THE ROOM LYING IN THE BED. PATIENT A/O X3, NO ACUTE RESPIRATORY DISTRESS, TELE ST-109/110. V/S TAKEN 92/56, P-78. REFUSED PAIN, BUT ANXIOUS, ENCOURAGED TO EXPRESS FEELINGS AND CONCERNS, ADMINISTERED SCHEDULED MEDICATION. INFUSING D5W WITH KCL 40ML/HR ON RIGHT HAND INTACT. PATIENT AMBULATORY, USING BATHROOM. NEXT TO THE BED. CALL LIGHT WITHIN TO REACH, CONTINUED MONITORING.
[2019-04-08] MEDS: NICOTINE PATCH (14MG) 14 MG PATCH.TD24 TD SCH ×2 (09:00→09:05)
[2019-04-08] MEDS: FAMOTIDINE (20 MG) 20 MG TABLET PO SCH (09:04)
[2019-04-08] MEDS: DOCUSATE SODIUM 100 MG CAPSULE PO SCH (09:04)
[2019-04-08] MEDS: ASPIRIN EC 81 MG TABLET.DR PO SCH (09:04)
[2019-04-08] MEDS: TOPIRAMATE 25 MG TABLET PO SCH (09:04)
[2019-04-08] MEDS: POLYETHYLENE GLYCOL 3350 17 GM POWD.PACK PO SCH ×2 (09:04→12:28)
[2019-04-08] MEDS: MEGESTROL ACETATE 40 MG TABLET PO SCH (09:04)
[2019-04-08] MEDS: LEVOTHYROXINE SODIUM 125 MCG TABLET PO SCH (09:05)
[2019-04-08] MEDS: ENSURE ENLIVE 237 ML LIQUID (VANILLA) PO SCH ×2 (09:05→12:26)
[2019-04-08] MEDS: PREGABALIN 25 MG CAPSULE PO SCH (09:13)
[2019-04-08] MEDS: FLUTICASONE/VILANTEROL 1 EACH BLST.W.DEV IH SCH (09:14)
--- NOTE | 2019-04-08 09:30 | NUR ---
RN NOTES SEEN PATIENT BY Dr. GALVAN, PATIENT REFUSED MRI TO BE TAKEN BECAUSE OF LOUD NOISE AND UNABLE TO HANDLE. PATIENT EAT BREAKFAST, CONTINUED MONITORING.
[2019-04-08] MEDS ORDERED: LEVO125T PO (10:05)
[2019-04-08] MEDS ORDERED: TAMS-12 PO (10:05)
[2019-04-08] MEDS ORDERED: FAMO20TA80 PO (10:05)
[2019-04-08] MEDS ORDERED: PREG25CA PO (10:05)
[2019-04-08] MEDS ORDERED: LORA10TA7 PO (10:05)
[2019-04-08] MEDS ORDERED: DIPH50CA37 PO (10:05)
[2019-04-08] MEDS ORDERED: ALBU2.5V13 NEB (10:05)
[2019-04-08] MEDS ORDERED: FLUT1BLS IH (10:05)
[2019-04-08] MEDS ORDERED: DOCU-270 PO (10:05)
[2019-04-08] MEDS ORDERED: NICO-676 TD (10:05)
[2019-04-08] MEDS ORDERED: TOPI25TA PO (10:05)
[2019-04-08] MEDS ORDERED: QUET25TA PO (10:05)
[2019-04-08] MEDS ORDERED: TRAM50TA2 PO (10:05)
[2019-04-08] MEDS ORDERED: ASPI-1152 PO (10:05)
[2019-04-08] MEDS ORDERED: ZOLP10TA2 PO (10:05)
[2019-04-08] MEDS ORDERED: AMIT10TA6 PO (10:05)
[2019-04-08] MEDS ORDERED: MEGE40TA PO (10:05)
[2019-04-08] MEDS ORDERED: IPRA0.2S9 NEB (10:05)
[2019-04-08] MEDS ORDERED: MIRT15TA PO (10:05)
[2019-04-08] MEDS ORDERED: POLY17PO4 PO (10:05)
--- NOTE | 2019-04-08 10:30 | NUR ---
RN NOTES PATIENT GOING TO DISCHARGE HOME, WILL FOLLOW PRIMARY MD.
--- NOTE | 2019-04-08 14:00 | NUR ---
ASSISTANT PROFESSOR OF RADIOLOGY NOTES PATIENT DISCHARGE AT THIS TIME GOING HOME. PATIENT STABLE, REFUSED PAIN, STABLE V/S STABLE, REMOVED IV ACCESS, REFUSED RESPIRATORY DISTRESS. MED RECONCILIATION AND DISCHARGE ORDER REVIEWED AND EXPLAINED TO PATIENT AND . PATIENT VERBALIZED UNDERSTANDING, BELONGING WITH THE PATIENT. PATIENT WILL FOLLOW PRIMARY MD. ESCORTED PATIENT TO THE LOBBY FOR SAFETY. PATIENT TOUR CONSULTANT BY SON-IN LOW NAME JAMI PHONE # [phone].
== END 2019-04-08 13:43 | disposition home health service (06) | DRG 640 ==
LOC: ER 15:14 → MED 17:05 → TELE 22:49 → MED 04-08 13:02
PROVIDERS: ADMIT Family Medicine; ATTEND Family Medicine
DX: R62.7 Adult failure to thrive (principal); E43 Unspecified severe protein-calorie malnutrition; K57.92 Diverticulitis of intestine, part unspecified, without perforation or abscess without bleeding; R64 Cachexia; F11.20 Opioid dependence, uncomplicated; I13.0 Hypertensive heart and chronic kidney disease with heart failure and stage 1 through stage 4 chronic kidney disease, or unspecified chronic kidney disease; N39.0 Urinary tract infection, site not specified; R51 Headache; E86.0 Dehydration; Z68.20 Body mass index [BMI] 20.0-20.9, adult; E03.9 Hypothyroidism, unspecified; E78.5 Hyperlipidemia, unspecified; F03.90 Unspecified dementia, unspecified severity, without behavioral disturbance, psychotic disturbance, mood disturbance, and anxiety; J44.9 Chronic obstructive pulmonary disease, unspecified; K21.9 Gastro-esophageal reflux disease without esophagitis; Z86.73 Personal history of transient ischemic attack (TIA), and cerebral infarction without residual deficits; Z91.19 Patient's noncompliance with other medical treatment and regimen; Z87.11 Personal history of peptic ulcer disease; Z86.59 Personal history of other mental and behavioral disorders; Z85.51 Personal history of malignant neoplasm of bladder; Z83.3 Family history of diabetes mellitus; Z82.49 Family history of ischemic heart disease and other diseases of the circulatory system; Z79.899 Other long term (current) drug therapy; Z79.890 Hormone replacement therapy; Z79.82 Long term (current) use of aspirin; Z79.51 Long term (current) use of inhaled steroids; R32 Unspecified urinary incontinence; G40.909 Epilepsy, unspecified, not intractable, without status epilepticus; Z98.890 Other specified postprocedural states; N40.0 Benign prostatic hyperplasia without lower urinary tract symptoms; I27.20 Pulmonary hypertension, unspecified; I25.10 Atherosclerotic heart disease of native coronary artery without angina pectoris; F17.200 Nicotine dependence, unspecified, uncomplicated; E11.43 Type 2 diabetes mellitus with diabetic autonomic (poly)neuropathy; D63.8 Anemia in other chronic diseases classified elsewhere; F41.0 Panic disorder [episodic paroxysmal anxiety]; F43.10 Post-traumatic stress disorder, unspecified; F20.9 Schizophrenia, unspecified; F29 Unspecified psychosis not due to a substance or known physiological condition; G89.4 Chronic pain syndrome; M81.0 Age-related osteoporosis without current pathological fracture; R20.2 Paresthesia of skin; M54.10 Radiculopathy, site unspecified; M53.0 Cervicocranial syndrome; M53.1 Cervicobrachial syndrome; K40.90 Unilateral inguinal hernia, without obstruction or gangrene, not specified as recurrent; M19.012 Primary osteoarthritis, left shoulder; G47.9 Sleep disorder, unspecified; K29.70 Gastritis, unspecified, without bleeding; Z91.14 Patient's other noncompliance with medication regimen; F60.7 Dependent personality disorder; F40.240 Claustrophobia; K31.84 Gastroparesis; E11.22 Type 2 diabetes mellitus with diabetic chronic kidney disease; I95.9 Hypotension, unspecified; E11.42 Type 2 diabetes mellitus with diabetic polyneuropathy; M50.30 Other cervical disc degeneration, unspecified cervical region; M47.9 Spondylosis, unspecified; Z90.6 Acquired absence of other parts of urinary tract; H93.19 Tinnitus, unspecified ear; F98.5 Adult onset fluency disorder; H70.10 Chronic mastoiditis, unspecified ear; G31.9 Degenerative disease of nervous system, unspecified; I50.9 Heart failure, unspecified; K58.9 Irritable bowel syndrome, unspecified; N18.9 Chronic kidney disease, unspecified; R29.6 Repeated falls
CPT/HCPCS: 36415; 70450-TC; 71045-TC; 72050-TC; 72052-TC; 76700-TC; 80048-TC; 80053-TC; 80076-TC; 81000-TC; 83540-TC; 83690-TC; 83735-TC; 84443-TC; 84484-TC; 85025-TC; 85730-TC; 87081-TC; 87086-TC; 87186-TC; 97116-TC; 97530-TC; 97535-TC; G0378; J1885; J2405; J2916; J3411; J3490; J7030; J7060; J7070; Q0163

== ENCOUNTER 2019-09-04 13:21 | Emergency (ER) | payer MEDICARE, OTHER ==
[~2019-09-04] VITALS: Ht 157.5 cm; Wt 57.2 kg
[~2019-09-04 13:21] MED LIST changes: +ALBU2.5V13 NEB; +ASPI-1152 PO; +ASPI-605 PO; +DIPH50CA37 PO; +DIPH50CA38 PO; +DOCU-270 PO; +FAMO20TA80 PO; +FLUT1BLS IH; -HYDR-4354 PO; -Hydrocodone/Apap 10/325MG PO; +IPRA0.2S9 NEB; +MIRT15TA PO; +NICO-676 TD; +POLY17PO4 PO; +PREG25CA PO; +QUET25TA PO; +TOPI25TA PO; +ZOLP10TA2 PO
--- NOTE | 2019-09-04 13:40 | NUR ---
DR OTERO AT BEDSIDE
--- NOTE | 2019-09-04 13:59 | NUR ---
URINE SAMPLE SENT TO LAB
[2019-09-04 14:02] LABS: BASOPHILS # (AUTO) 0.1 /CMM (0.0-0.2); BASOPHILS % (AUTO) 0.9 % (0.0-2.0); EOSINOPHILS % (AUTO) 1.3 % (0.0-6.0); HEMATOCRIT 42 % (39-51); LYMPHOCYTES # (AUTO) 1.7 /CMM (0.8-4.8); LYMPHOCYTES % (AUTO) 27.1 % (20.0-44.0); MEAN CORPUSCULAR HGB CONC 33 g/dl (31.0-36.0); MEAN CORPUSCULAR VOLUME 93 fL (80-96); MONOCYTES # (AUTO) 0.5 /CMM (0.1-1.30); MONOCYTES % (AUTO) 8.6 % (2.0-12.0); NEUTROPHILS % (AUTO) 62.1 % (43.0-81.0); PLATELET COUNT (AUTO) 206 /CMM (150-450); RED BLOOD CELL COUNT(AUTO) 4.54 MIL/uL (4.5-6.0); WHITE BLOOD COUNT (AUTO) 6.4 K/uL (4.3-11.0)
[2019-09-04 14:03] LABS: APPEARANCE,URINE Clear (CLEAR); BILIRUBIN,URINE SMALL (NEGATIVE); BLOOD, URINE Large Ery/uL (NEGATIVE); KETONES,URINE Negative (NEGATIVE); LEUKOCYTE ESTERASE ,URINE Negative (NEGATIVE); NITRITE, URINE Negative (NEGATIVE); PH,URINE 6.5 (5.0-8.0); PROTEIN,URINE >=300 mg/dl (NEGATIVE); UGLUCOSE Negative (NEGATIVE)
[2019-09-04 14:04] LABS: COLOR,URINE RED (YELLOW); RBC,URINE 51-80 /HPF (0-2)
[2019-09-04 14:05] LABS: BACTERIA,URINE Few /HPF (None Seen); SQUAMOUS EPITHELIAL CELL,UR Rare /HPF (None Seen)
[2019-09-04 14:09] LABS: CALCIUM, SERUM 9.7 mg/dL (8.5-10.1); CREATININE 0.8 mg/dL (0.6-1.3); POTASSIUM 3.9 mmol/L (3.5-5.1)
[2019-09-04 14:15] LABS: ALBUMIN 4.6 g/dL (3.4-5.0); BILIRUBIN,DIRECT 0.1 mg/dL (0.0-0.2); BILIRUBIN,TOTAL 0.5 mg/dL (0.2-1.0); TOTAL PROTEIN, SERUM 8.1 g/dL (6.4-8.2)
[2019-09-04] MEDS ORDERED: PENICILLIN G BENZATHINE 2.4 MMU/4 ML ML IM ONE ×2 (15:28→15:30)
--- NOTE | 2019-09-04 15:28 | NUR ---
IV removed. Catheter intact and site benign. Pressure and 4x4 applied to site. No bleeding noted.
[2019-09-04 15:36] VITALS: BP 135/84
== END 2019-09-04 15:36 | disposition home or self-care (01) ==
LOC: ER 13:21
DX: N30.91 Cystitis, unspecified with hematuria (principal); I10 Essential (primary) hypertension; G43.909 Migraine, unspecified, not intractable, without status migrainosus; J44.9 Chronic obstructive pulmonary disease, unspecified; K21.9 Gastro-esophageal reflux disease without esophagitis; F03.90 Unspecified dementia, unspecified severity, without behavioral disturbance, psychotic disturbance, mood disturbance, and anxiety; G40.909 Epilepsy, unspecified, not intractable, without status epilepticus; F32.9 Major depressive disorder, single episode, unspecified; F17.200 Nicotine dependence, unspecified, uncomplicated; Z90.89 Acquired absence of other organs; Z85.46 Personal history of malignant neoplasm of prostate; Z98.890 Other specified postprocedural states; Z79.899 Other long term (current) drug therapy; Z79.82 Long term (current) use of aspirin
CPT/HCPCS: 36415; 80048; 80076; 81001; 83690; 85025; 87086; 96372; 99283; J0558; 81000-TC

== ENCOUNTER 2020-12-11 19:57 | Emergency (ER) | payer MEDICARE, OTHER ==
[~2020-12-11] VITALS: Ht 160 cm; Wt 54.4 kg
[~2020-12-11 19:57] MED LIST changes: -ASPI-1152 PO; +ASPI-1420 PO; -MEGE40TA PO; +MEGE40TA5 PO; +MEGE40TA7 PO; +MIRT-121 PO; -MIRT15TA PO
[2020-12-11] MEDS ORDERED: IV NS 0.9% 1,000 ML BAG IV ONE (20:30)
[2020-12-11] MEDS ORDERED: MORPHINE SULFATE INJ 2 MG/ML DISP.SYRIN IV ONE (20:30)
[2020-12-11] MEDS ORDERED: ONDANSETRON HCL/PF 4 MG/2 ML VIAL IVP ONE (20:30)
[2020-12-11] MEDS ORDERED: ONDANSETRON HCL/PF 4 MG/2 ML VIAL ONE (20:35)
[2020-12-11] MEDS ORDERED: MORPHINE SULFATE INJ 4 MG/ML DISP.SYRIN ONE (20:36)
--- NOTE | 2020-12-11 20:43 | NUR ---
covid swab collected and sent to the lab.
--- NOTE | 2020-12-11 20:45 | NUR ---
BIBFAMILY MEMBER FROM HOME C/O HEMATURIA +L HIP PAIN X2 DAYS +FEVER PT AFEBRILE UPON TRIAGE. TESTED COVID NEGATIVE LAST WEEK. PT AAOX3, VSS. RR EVEN & UNLABORED. DENIES CP, SOB, DIZZINESS, N/V AT THIS TIME. PT SEEN & EVAL'D BY DR. MCKENZIE. MEDICATED FOR PAIN, PT ANIRUDH WELL. WILL CONT TO MONITOR. SON AT BS.
[2020-12-11 21:21] LABS: BILIRUBIN,URINE Negative (NEGATIVE); COLOR,URINE YELLOW (YELLOW); LEUKOCYTE ESTERASE ,URINE Negative (NEGATIVE); NITRITE, URINE Negative (NEGATIVE); PH,URINE 6.5 (5.0-8.0); PROTEIN,URINE Trace mg/dl (NEGATIVE); UGLUCOSE Negative (NEGATIVE)
[2020-12-11 21:36] LABS: BASOPHILS % (AUTO) 0.4 % (0.0-2.0); EOSINOPHILS % (AUTO) 0.7 % (0.0-6.0); HEMATOCRIT 36 % (39-51); LYMPHOCYTES # (AUTO) 1.3 /CMM (0.8-4.8); MEAN CORPUSCULAR HGB CONC 33 g/dl (31.0-36.0); MEAN CORPUSCULAR VOLUME 91 fL (80-96); MONOCYTES # (AUTO) 0.8 /CMM (0.1-1.30); MONOCYTES % (AUTO) 8.7 % (2.0-12.0); NEUTROPHILS % (AUTO) 76.2 % (43.0-81.0); PLATELET COUNT (AUTO) 267 /CMM (150-450); WHITE BLOOD COUNT (AUTO) 9.1 K/uL (4.3-11.0)
[2020-12-11 21:38] LABS: BACTERIA,URINE Rare /HPF (None Seen); CALCIUM OXALATE CRYSTALS,UR Rare /HPF (None Seen); SQUAMOUS EPITHELIAL CELL,UR 0-2 /HPF (None Seen)
[2020-12-11] MEDS ORDERED: AZITHROMYCIN 500 MG in IV D5W 250 ML IV ONE (22:00)
[2020-12-11] MEDS ORDERED: CEFTRIAXONE 1GM BAG (ER ONLY) 50 ML IV ONE ×2 (22:00→22:25)
[2020-12-11 22:08] LABS: CALCIUM, SERUM 10.1 mg/dL (8.5-10.1); CARBON DIOXIDE 26 mmol/L (21-32); CHLORIDE 102 mmol/L (98-107); CREATININE 0.7 mg/dL (0.6-1.3); GLUCOSE 170 mg/dL (74-106); POTASSIUM 4.7 mmol/L (3.5-5.1); SODIUM SERUM 139 mmol/L (136-145); UREA NITROGEN, BLOOD 20 mg/dL (7-18)
[2020-12-11 22:16] LABS: ALANINE AMINOTRANSFERASE 19 U/L (12-78); ALBUMIN 3.3 g/dL (3.4-5.0); ALKALINE PHOSPHATASE 65 U/L (46-116); ASPARTATE AMINOTRANSFERASE 25 U/L (15-37); BILIRUBIN,DIRECT 0.1 mg/dL (0.0-0.2); BILIRUBIN,TOTAL 0.7 mg/dL (0.2-1.0)
[2020-12-11] MEDS ORDERED: IV NS 0.9% 250 ML IV ONE (22:17)
[2020-12-11] MEDS ORDERED: IOHEXOL-300 100 ML VIAL IV ONE (22:17)
[2020-12-11] MEDS ORDERED: AZITHROMYCIN 500 MG VIAL ONE (22:25)
[2020-12-11] MEDS ORDERED: LEVO750T46 PO (22:25)
--- NOTE | 2020-12-11 22:34 | NUR ---
PT RETURNED FROM CT
--- NOTE | 2020-12-11 23:00 | NUR ---
PT RESTING, NAD NOTED AT THIS TIME. WILL CONT TO MONITOR. SON AT BS.
--- NOTE | 2020-12-11 23:20 | NUR ---
CALLED LAUREN TO HAVE IMAGE READ. PER SATELLITE TELEVISION INSTALLER, IMAGE BEING READ NOW
--- NOTE | 2020-12-11 23:29 | NUR ---
Patient discharged to home in stable condition. Written and verbal after care instructions given. Patient verbalizes understanding of instruction. IV removed. Catheter intact and site benign. Pressure and 4x4 applied to site. No bleeding noted.Pt wheeled out on wheel chair
[2020-12-12 00:19] VITALS: BP 115/67
== END 2020-12-12 | disposition left against medical advice (07) ==
LOC: ER 20:00
DX: J18.9 Pneumonia, unspecified organism (principal); Z20.822 Contact with and (suspected) exposure to COVID-19; R10.31 Right lower quadrant pain; J44.0 Chronic obstructive pulmonary disease with (acute) lower respiratory infection; Z72.0 Tobacco use; K21.9 Gastro-esophageal reflux disease without esophagitis; I10 Essential (primary) hypertension; G40.909 Epilepsy, unspecified, not intractable, without status epilepticus; Z85.46 Personal history of malignant neoplasm of prostate; F03.90 Unspecified dementia, unspecified severity, without behavioral disturbance, psychotic disturbance, mood disturbance, and anxiety; K00.0 Anodontia; Z79.899 Other long term (current) drug therapy; Z79.82 Long term (current) use of aspirin; R06.82 Tachypnea, not elsewhere classified; N28.1 Cyst of kidney, acquired; R31.9 Hematuria, unspecified
CPT/HCPCS: 36415; 71045; 74177; 80048; 80076; 81001; 83605; 83880; 84484; 85025; 85730; 87040 ×2; 87081; 87086; 87426; 93005; 96361; 96365; 96368; 96375; 99285; J0456; J0696; J2270; J2405; J7050; Q9967; C9803; J7060

== ENCOUNTER 2020-12-14 10:36 | Emergency (ER) | payer MEDICARE, OTHER ==
[~2020-12-14] VITALS: Ht 160 cm; Wt 54.4 kg
[~2020-12-14 10:36] MED LIST changes: +LEVO750T46 PO
--- NOTE | 2020-12-14 10:36 | NUR ---
PT BIB SON FROM HOME C/O SOB RECENTLY DX OF PNEUMONIA. PT IS AAOX3, NOT IN RESPIRATORY DISTRESS, HOOKED TO STRUCTURAL ANALYST, KEPT RESTED AND COMFORTABLE. WILL CONTINUE TO MONITOR.
--- NOTE | 2020-12-14 10:46 | NUR ---
AT BEDSIDE FOR EVAL.
--- NOTE | 2020-12-14 10:55 | NUR ---
IV LINE ESTABLISHED BLOOD DRAWN AND SENT TO LAB.
[2020-12-14] MEDS ORDERED: CEFTRIAXONE 1GM BAG (ER ONLY) 50 ML IV ONE ×2 (11:00→11:05)
--- NOTE | 2020-12-14 11:01 | NUR ---
REMOTE OPERATIONS PRODUCER AT BEDSIDE FOR XRAY.
--- NOTE | 2020-12-14 11:09 | NUR ---
URINAL GIVEN BUT UNABLE TO PROVIDE URINE SPECIMEN THIS TIME.
[2020-12-14 11:15] LABS: BASOPHILS % (AUTO) 0.6 % (0.0-2.0); EOSINOPHILS % (AUTO) 0.8 % (0.0-6.0); HEMATOCRIT 36 % (39-51); LYMPHOCYTES # (AUTO) 1.3 /CMM (0.8-4.8); LYMPHOCYTES % (AUTO) 21.6 % (20.0-44.0); MEAN CORPUSCULAR HGB CONC 33 g/dl (31.0-36.0); MEAN CORPUSCULAR VOLUME 91 fL (80-96); MONOCYTES # (AUTO) 0.5 /CMM (0.1-1.30); MONOCYTES % (AUTO) 9.3 % (2.0-12.0); NEUTROPHILS % (AUTO) 67.7 % (43.0-81.0); PLATELET COUNT (AUTO) 288 /CMM (150-450); RED BLOOD CELL COUNT(AUTO) 3.98 MIL/uL (4.5-6.0); WHITE BLOOD COUNT (AUTO) 5.9 K/uL (4.3-11.0)
[2020-12-14 11:39] LABS: ALANINE AMINOTRANSFERASE 16 U/L (12-78); ALBUMIN 3.4 g/dL (3.4-5.0); ALKALINE PHOSPHATASE 57 U/L (46-116); ASPARTATE AMINOTRANSFERASE 16 U/L (15-37); BILIRUBIN,DIRECT 0.1 mg/dL (0.0-0.2); BILIRUBIN,TOTAL 0.4 mg/dL (0.2-1.0); CALCIUM, SERUM 9.5 mg/dL (8.5-10.1); CARBON DIOXIDE 30 mmol/L (21-32); CHLORIDE 101 mmol/L (98-107); CREATININE 0.8 mg/dL (0.6-1.3); GLUCOSE 136 mg/dL (74-106); POTASSIUM 4.1 mmol/L (3.5-5.1); SODIUM SERUM 138 mmol/L (136-145); TOTAL PROTEIN, SERUM 7.7 g/dL (6.4-8.2); UREA NITROGEN, BLOOD 17 mg/dL (7-18)
--- NOTE | 2020-12-14 12:15 | NUR ---
IV removed. Catheter intact and site benign. Pressure and 4x4 applied to site. No bleeding noted. Patient discharged to home in stable condition. Written and verbal after care instructions given. Patient verbalizes understanding of instruction.
[2020-12-14 12:16] VITALS: BP 135/81
[2020-12-14] MEDS ORDERED: DONE10TA44 PO (12:22)
[2020-12-14] MEDS ORDERED: CYCL30DR EACHEYE (12:22)
[2020-12-14] MEDS ORDERED: DIVA-78 PO (12:22)
[2020-12-14] MEDS ORDERED: FINA5TAB11 PO (12:22)
[2020-12-14] MEDS ORDERED: GABA-532 PO (12:22)
[2020-12-14] MEDS ORDERED: AMLO1CAP5 PO (12:22)
[2020-12-14] MEDS ORDERED: TRAM50TA2 PO (12:22)
[2020-12-14] MEDS ORDERED: LINA290C PO (12:22)
[2020-12-14] MEDS ORDERED: OMEG-178 PO (12:22)
[2020-12-14] MEDS ORDERED: SELE180S13 TP (12:22)
[2020-12-14] MEDS ORDERED: TAMS-12 PO (12:22)
[2020-12-14] MEDS ORDERED: ESCI10TA PO (12:22)
[2020-12-14] MEDS ORDERED: CARV6.252 PO (12:22)
[2020-12-14] MEDS ORDERED: HALO2ORA4 SL (12:22)
[2020-12-14] MEDS ORDERED: MAGN400T26 PO (12:22)
[2020-12-14] MEDS ORDERED: HYDR-3980 PO (12:22)
[2020-12-14] MEDS ORDERED: LORA2ORA SL (12:22)
[2020-12-14] MEDS ORDERED: MECL-159 PO (12:22)
[2020-12-14] MEDS ORDERED: AMIO200T5 PO (12:22)
[2020-12-14] MEDS ORDERED: ONDA4TAB5 PO (12:22)
[2020-12-14] MEDS ORDERED: PROM473S7 PO (12:22)
[2020-12-14] MEDS ORDERED: LEVO150T8 PO (12:22)
[2020-12-14] MEDS ORDERED: CETI-108 PO (12:22)
[2020-12-14] MEDS ORDERED: TIOT4MIS3 IH (12:22)
[2020-12-14] MEDS ORDERED: AZEL137S7 (12:22)
[2020-12-14] MEDS ORDERED: BICA50TA49 PO (12:22)
[2020-12-14] MEDS ORDERED: ARIP30TA3 PO (12:22)
[2020-12-14] MEDS ORDERED: OMEP40CA13 PO (12:22)
== END 2020-12-14 12:23 | disposition home or self-care (01) ==
LOC: ER 10:36
DX: J18.9 Pneumonia, unspecified organism (principal); G43.909 Migraine, unspecified, not intractable, without status migrainosus; I10 Essential (primary) hypertension; J45.909 Unspecified asthma, uncomplicated; K21.9 Gastro-esophageal reflux disease without esophagitis; G40.909 Epilepsy, unspecified, not intractable, without status epilepticus; F03.90 Unspecified dementia, unspecified severity, without behavioral disturbance, psychotic disturbance, mood disturbance, and anxiety; F32.9 Major depressive disorder, single episode, unspecified; Z90.89 Acquired absence of other organs; Z98.890 Other specified postprocedural states; Z79.899 Other long term (current) drug therapy; Z79.82 Long term (current) use of aspirin
CPT/HCPCS: 36415; 71045; 80048; 80076; 83605; 84145; 84484; 85025; 85730; 87040 ×2; 93005; 96365; 99285; J0696

== ENCOUNTER 2021-02-15 11:33 | Emergency (ER) | payer MEDICARE, OTHER ==
[~2021-02-15] VITALS: Ht 157.5 cm; Wt 49.9 kg
[~2021-02-15 11:33] MED LIST changes: -ALBU2.5V13 NEB; +AMIO200T5 PO; -AMIT10TA6 PO; +AMLO1CAP5 PO; +ARIP30TA3 PO; -ASPI-1420 PO; +AZEL137S7; +BICA50TA49 PO; +CARV6.252 PO; +CETI-108 PO; +CYCL30DR EACHEYE; -DIPH50CA37 PO; -DIPH50CA38 PO; +DIVA-78 PO; -DOCU-270 PO; +DONE10TA44 PO; +ESCI10TA PO; -FAMO20TA80 PO; +FINA5TAB11 PO; -FLUT1BLS IH; +GABA-532 PO; +HALO2ORA4 SL; +HYDR-3980 PO; -IPRA0.2S9 NEB; -LEVO125T PO; +LEVO150T8 PO; -LEVO750T46 PO; +LINA290C PO; -LORA10TA7 PO; +LORA2ORA SL; +MAGN400T26 PO; +MECL-159 PO; -MEGE40TA5 PO; -MIRT-121 PO; -NICO-676 TD; +OMEG-178 PO; +OMEP40CA13 PO; +ONDA4TAB5 PO; -POLY17PO4 PO; -PREG25CA PO; +PROM473S7 PO; +SELE180S13 TP; +TIOT4MIS3 IH; -TOPI25TA PO; -ZOLP10TA2 PO
--- NOTE | 2021-02-15 11:33 | NUR ---
BIB SON C/O BLOODY URINE FOR 5 DAYS. PT IS AAOX4, NOT IN RESPIRATORY DISTRESS, V/S STABLE, KEPT RESTED AND COMFORTABLE. WILL CONTINUE TO MONITOR.
--- NOTE | 2021-02-15 11:36 | NUR ---
PT SEEN AND EXAMINED BY .
--- NOTE | 2021-02-15 11:36 | NUR ---
PT CALLED TO TRIAGE, PT NOT IN WAITING ROOM
--- NOTE | 2021-02-15 11:40 | NUR ---
PT UNABLE TO PROVIDE URINE SPECIMEN THIS TIME.
--- NOTE | 2021-02-15 11:43 | NUR ---
ER PHLEB AT BEDSIDE FOR BLOOD DRAW.
[2021-02-15 11:52] LABS: BASOPHILS % (AUTO) 0.4 % (0.0-2.0); EOSINOPHILS % (AUTO) 2.6 % (0.0-6.0); HEMATOCRIT 38 % (39-51); HEMOGLOBIN 12.5 g/dL (13.5-17.5); LYMPHOCYTES # (AUTO) 2.5 /CMM (0.8-4.8); LYMPHOCYTES % (AUTO) 35.2 % (20.0-44.0); MEAN CORPUSCULAR HGB CONC 33 g/dl (31.0-36.0); MEAN CORPUSCULAR VOLUME 93 fL (80-96); MONOCYTES # (AUTO) 0.6 /CMM (0.1-1.30); MONOCYTES % (AUTO) 8.5 % (2.0-12.0); NEUTROPHILS # (AUTO) 3.8 /CMM (1.8-8.9); NEUTROPHILS % (AUTO) 53.3 % (43.0-81.0); PLATELET COUNT (AUTO) 194 /CMM (150-450); RED BLOOD CELL COUNT(AUTO) 4.07 MIL/uL (4.5-6.0)
[2021-02-15 12:00] LABS: CREATININE 1.1 mg/dL (0.6-1.3); POTASSIUM 4.7 mmol/L (3.5-5.1)
--- NOTE | 2021-02-15 12:05 | NUR ---
URINE SPECIMEN COLLECTED AND SENT TO LAB.
[2021-02-15 12:12] LABS: BILIRUBIN,URINE SMALL (NEGATIVE); COLOR,URINE RED (YELLOW); LEUKOCYTE ESTERASE ,URINE Large (NEGATIVE); NITRITE, URINE Positive (NEGATIVE); PROTEIN,URINE >=300 mg/dl (NEGATIVE); UGLUCOSE Negative (NEGATIVE); UROBILINOGEN,URINE 0.2 EU/dL (0.2)
[2021-02-15 12:15] LABS: RBC,URINE TOO NUMEROUS TO COUN /HPF (0-2)
[2021-02-15 12:17] LABS: BACTERIA,URINE Few /HPF (None Seen); SQUAMOUS EPITHELIAL CELL,UR 0-2 /HPF (None Seen)
[2021-02-15] MEDS ORDERED: CEFTRIAXONE 1 G in IV D5W 50 ML IV STA (12:59)
[2021-02-15] MEDS ORDERED: CEFTRIAXONE 1GM BAG (ER ONLY) 50 ML IV ONE (13:01)
[2021-02-15] MEDS ORDERED: CEPH500C2 PO (13:04)
--- NOTE | 2021-02-15 13:06 | NUR ---
PT BELLIGERENT TOWARDS STAFF AND TRY TO HIT MY HAND. PT REFUSED IV ANTIBIOTIC.
[2021-02-15 13:09] VITALS: BP 119/62
--- NOTE | 2021-02-15 13:09 | NUR ---
Patient discharged to home in stable condition. Written and verbal after care instructions given. Patient verbalizes understanding of instruction.
== END 2021-02-15 13:10 | disposition home or self-care (01) ==
LOC: ER 11:33
DX: N39.0 Urinary tract infection, site not specified (principal); I10 Essential (primary) hypertension; G43.909 Migraine, unspecified, not intractable, without status migrainosus; J44.9 Chronic obstructive pulmonary disease, unspecified; G40.909 Epilepsy, unspecified, not intractable, without status epilepticus; K21.9 Gastro-esophageal reflux disease without esophagitis; F03.90 Unspecified dementia, unspecified severity, without behavioral disturbance, psychotic disturbance, mood disturbance, and anxiety; F32.9 Major depressive disorder, single episode, unspecified; Z90.89 Acquired absence of other organs; Z98.890 Other specified postprocedural states; Z79.899 Other long term (current) drug therapy; Z79.82 Long term (current) use of aspirin
CPT/HCPCS: 36415; 80048-TC; 81001; 85025-TC; 87086-TC; J0696

== ENCOUNTER 2022-11-19 10:03 | Emergency (ER) | payer MEDICARE, OTHER ==
[~2022-11-19] VITALS: Ht 157.5 cm; Wt 56.7 kg
[~2022-11-19 10:03] MED LIST changes: +CEPH500C2 PO; +MIRT-91 PO; -MIRT30TA7 PO; -OMEP40CA13 PO; +OMEP40CA21 PO
--- NOTE | 2022-11-19 10:30 | NUR ---
MOVE SHEET SUBMITTED.
--- NOTE | 2022-11-19 10:53 | NUR ---
BIB son for headache, nausea x 1 month. A/O x 3
[2022-11-19] MEDS ORDERED: OMEP1CAP24 PO (10:57)
[2022-11-19] MEDS ORDERED: ASPI-1420 PO (10:57)
[2022-11-19] MEDS ORDERED: FERR325T24 PO (10:57)
[2022-11-19] MEDS ORDERED: UBRO100T PO (10:58)
[2022-11-19] MEDS ORDERED: MORPHINE SULFATE INJ 2 MG/ML DISP.SYRIN IV ONE ×2 (11:00→12:00)
[2022-11-19] MEDS ORDERED: IV NS 0.9% 1,000 ML IV ONE (11:00)
--- NOTE | 2022-11-19 11:00 | NUR ---
BLOOD SAMPLES OBTAINED
--- NOTE | 2022-11-19 11:00 | NUR ---
COVID SWAB OBTAINED
[2022-11-19 11:02] LABS: BASOPHILS % (AUTO) 0.3 % (0.0-2.0); EOSINOPHILS % (AUTO) 0.6 % (0.0-6.0); HEMATOCRIT 37 % (39-51); HEMOGLOBIN 12.7 g/dL (13.5-17.5); LYMPHOCYTES # (AUTO) 1.3 K/uL (0.8-4.8); MEAN CORPUSCULAR HGB CONC 34 g/dl (31.0-36.0); MEAN CORPUSCULAR VOLUME 91 fL (80-96); MONOCYTES # (AUTO) 0.5 K/uL (0.1-1.30); MONOCYTES % (AUTO) 9.8 % (2.0-12.0); NEUTROPHILS # (AUTO) 3.4 K/uL (1.8-8.9); NEUTROPHILS % (AUTO) 65.3 % (43.0-81.0); PLATELET COUNT (AUTO) 250 K/uL (150-450); RED BLOOD CELL COUNT(AUTO) 4.11 MIL/uL (4.5-6.0); WHITE BLOOD COUNT (AUTO) 5.3 K/uL (4.3-11.0)
[2022-11-19] MEDS ORDERED: MORPHINE SULFATE INJ 2 MG/ML DISP.SYRIN ONE ×2 (11:10→11:50)
[2022-11-19 11:12] LABS: CALCIUM, SERUM 9.2 mg/dL (8.5-10.1); CARBON DIOXIDE 22 mmol/L (21-32); CHLORIDE 92 mmol/L (98-107); GLUCOSE 117 mg/dL (74-106); POTASSIUM 4.2 mmol/L (3.5-5.1); SODIUM SERUM 127 mmol/L (136-145); UREA NITROGEN, BLOOD 9 mg/dL (7-18)
[2022-11-19 11:18] LABS: ALANINE AMINOTRANSFERASE 19 U/L (12-78); ALBUMIN 4.4 g/dL (3.4-5.0); ALKALINE PHOSPHATASE 43 U/L (46-116); ASPARTATE AMINOTRANSFERASE 19 U/L (15-37); BILIRUBIN,DIRECT 0.3 mg/dL (0.0-0.2); TOTAL PROTEIN, SERUM 7.6 g/dL (6.4-8.2)
[2022-11-19 11:35] VITALS: BP 127/62
[2022-11-19] MEDS ORDERED: ACETAMINOPHEN 325 MG TABLET PO PRN (12:00)
[2022-11-19] MEDS ORDERED: HYDROCODONE/APAP 10/325MG TABLET PO PRN (12:00)
[2022-11-19] MEDS ORDERED: diphenhydrAMINE HCL 50 MG/ML VIAL IV ONE (12:00)
[2022-11-19] MEDS ORDERED: Medication Not On Formulary EA (Ubrogepant (Ubrelvy) 100 MG) PO PRN (12:00)
[2022-11-19] MEDS ORDERED: IV NS 0.9% 1,000 ML IV PRN (12:00)
[2022-11-19] MEDS ORDERED: ONDANSETRON HCL/PF 4 MG/2 ML VIAL IVP PRN (12:00)
[2022-11-19] MEDS ORDERED: MAGNESIUM HYDROXIDE 30 ML UDC PO PRN (12:00)
[2022-11-19] MEDS ORDERED: ZOLPIDEM TARTRATE 5 MG TABLET PO PRN (12:00)
[2022-11-19] MEDS ORDERED: MAG HYDROX/AL HYDROX/SIMETH 30 ML UDC PO PRN (12:00)
[2022-11-19] MEDS ORDERED: HYDROMORPHONE INJ 2 MG/ML DISP.SYRIN IV PRN (12:00)
[2022-11-19] MEDS ORDERED: Z GUARD REMEDY 4 OZ OINT TP PRN (12:00)
--- NOTE | 2022-11-19 12:25 | NUR ---
URINE SAMPLE OBTAINED
[2022-11-19] MEDS ORDERED: TEMAZEPAM 15 MG CAPSULE PO PRN (12:30)
[2022-11-19 12:55] LABS: BILIRUBIN,URINE NEGATIVE (NEGATIVE); COLOR,URINE YELLOW (YELLOW); LEUKOCYTE ESTERASE ,URINE NEGATIVE (NEGATIVE); NITRITE, URINE NEGATIVE (NEGATIVE); PROTEIN,URINE NEGATIVE (NEGATIVE); UGLUCOSE NEGATIVE (NEGATIVE); UROBILINOGEN,URINE 0.2 EU/dL (0.2)
[2022-11-19 12:59] LABS: BACTERIA,URINE Rare /HPF (None Seen); RBC,URINE 0-2 /HPF (0-2); SQUAMOUS EPITHELIAL CELL,UR Many /HPF (None Seen); WBC,URINE 0-2 /HPF (0-3)
[2022-11-19] MEDS ORDERED: KETOROLAC TROMETHAMINE INJ 30 MG/ML VIAL IV ONE (13:30)
[2022-11-19] MEDS ORDERED: KETOROLAC TROMETHAMINE 15 MG/ML VIAL ONE (13:32)
--- NOTE | 2022-11-19 13:39 | NUR ---
Family member (son) gave patient 10 mg Zolpidem home medication @ 9610. Patient baseline status unchanged. Will continue to monitor patient.
--- NOTE | 2022-11-19 14:35 | NUR ---
IV removed. Catheter intact and site benign. Pressure and 4x4 applied to site. No bleeding noted.
--- NOTE | 2022-11-19 14:37 | NUR ---
GOT BED 119-2
--- NOTE | 2022-11-19 14:50 | NUR ---
Patient does not wish to proceed with medical care recommended by Dr. Neely. Patient given information related to possible complications, up to and including , which could occur as a result of leaving the hospital at this time. Patient verbalizes understanding of risks involved due to leaving against medical advice. Patient has signed AMA form. Patient left hospital accompanied by son and daughter. Patient stable at time of leaving hospital.
[2022-11-19] MEDS ORDERED: FAMOTIDINE/PF INJ 20 MG/2 ML VIAL IV SCH (17:00)
[2022-11-19] MEDS ORDERED: Medication Not On Formulary EA (Omeprazole/Sodium Bicarbonate (Omeprazole-Bicarb 20-1,10 PO SCH (17:00)
[2022-11-19] MEDS ORDERED: QUETIAPINE FUMARATE 25 MG TABLET PO SCH (22:00)
[2022-11-19] MEDS ORDERED: TAMSULOSIN 0.4 MG CAP.SR.24H PO SCH (22:00)
[2022-11-20] MEDS ORDERED: LEVOTHYROXINE SODIUM 125 MCG PO SCH (07:30)
[2022-11-20] MEDS ORDERED: MECLIZINE HCL 25 MG TABLET PO SCH (09:00)
[2022-11-20] MEDS ORDERED: FERROUS SULFATE (325 MG) 325 MG/TAB TABLET PO SCH (09:00)
[2022-11-20] MEDS ORDERED: ASPIRIN EC 81 MG TABLET.DR PO SCH (09:00)
[2022-11-20] MEDS ORDERED: FINASTERIDE (5 MG) 5 MG TABLET PO SCH (09:00)
== END 2022-11-19 14:54 | disposition left against medical advice (07) ==
LOC: ER 10:13
DX: R51.9 Headache, unspecified (principal); R62.7 Adult failure to thrive; I10 Essential (primary) hypertension; J44.9 Chronic obstructive pulmonary disease, unspecified; K21.9 Gastro-esophageal reflux disease without esophagitis; F17.200 Nicotine dependence, unspecified, uncomplicated; Z20.822 Contact with and (suspected) exposure to COVID-19; Z68.22 Body mass index [BMI] 22.0-22.9, adult; Z85.46 Personal history of malignant neoplasm of prostate; Z90.89 Acquired absence of other organs; Z79.899 Other long term (current) drug therapy
CPT/HCPCS: 99285; 96374; 70450; 71045; 96375; 96361; 87426; 96376; 85025; 80048; 80076; 81001; 36415; 87081; J1200; J7030; J2270 ×2; J1885; C9803

== ENCOUNTER 2023-11-11 20:08 | Emergency (ER) | payer MEDICARE, OTHER ==
[~2023-11-11] VITALS: Ht 162.6 cm; Wt 57.2 kg
[~2023-11-11 20:08] MED LIST changes: -AMIO200T5 PO; +ASPI-1420 PO; -ASPI-605 PO; -AZEL137S7; -BICA50TA49 PO; -CARV6.252 PO; -CEPH500C2 PO; -CETI-108 PO; -CYCL30DR EACHEYE; -DIVA-78 PO; -DOCU-141 PO; -DONE10TA44 PO; -ESCI10TA PO; +FERR325T24 PO; -FLUT1DIS3 IH; -GABA-532 PO; -HALO2ORA4 SL; -LINA290C PO; -LORA2ORA SL; -MAGN400T26 PO; -MEGE40TA7 PO; -MIRT-91 PO; -NEBI5TAB8 PO; -OMEG-178 PO; +OMEP1CAP24 PO; -OMEP40CA21 PO; -ONDA4TAB5 PO; -PREG150C PO; -PROM473S7 PO; -SELE180S13 TP; -TIOT4MIS3 IH; -TOPI25TA49 PO; +UBRO100T PO
[2023-11-11 21:27] VITALS: BP 150/72; TEMP 99.2; O2SAT 100
[2023-11-11 22:36] LABS: APPEARANCE,URINE SLIGHTLY CLOUDY (CLEAR); BILIRUBIN,URINE 1+ (NEGATIVE); BLOOD, URINE 3+ Ery/uL (NEGATIVE); COLOR,URINE YELLOW (YELLOW); KETONES,URINE TRACE mg/dL (NEGATIVE); LEUKOCYTE ESTERASE ,URINE NEGATIVE (NEGATIVE); NITRITE, URINE NEGATIVE (NEGATIVE); PROTEIN,URINE 1+ mg/dl (NEGATIVE); UGLUCOSE NEGATIVE (NEGATIVE)
[2023-11-11 23:54] LABS: ADD URINE CULTURE NO; BACTERIA,URINE 1+ /HPF (None Seen); RBC,URINE TOO NUMEROUS TO COUN /HPF (0-2); SQUAMOUS EPITHELIAL CELL,UR None Seen /HPF (None Seen); WBC,URINE 0-2 /HPF (0-3)
[2023-11-11 23:55] LABS: MUCUS,URINE Moderate /LPF (None Seen)
[2023-11-12 01:01] LABS: BASOPHILS % (AUTO) 0.3 % (0.0-2.0); EOSINOPHILS % (AUTO) 0.7 % (0.0-6.0); HEMATOCRIT 37 % (39-51); HEMOGLOBIN 12.6 g/dL (13.5-17.5); LYMPHOCYTES # (AUTO) 1.9 K/uL (0.8-4.8); LYMPHOCYTES % (AUTO) 33.6 % (20.0-44.0); MEAN CORPUSCULAR HEMOGLOBIN 31 PG (26.0-33.0); MEAN CORPUSCULAR HGB CONC 34 g/dl (31.0-36.0); MEAN CORPUSCULAR VOLUME 93 fL (80-96); MONOCYTES # (AUTO) 0.4 K/uL (0.1-1.30); MONOCYTES % (AUTO) 6.8 % (2.0-12.0); NEUTROPHILS # (AUTO) 3.3 K/uL (1.8-8.9); NEUTROPHILS % (AUTO) 58.6 % (43.0-81.0); PLATELET COUNT (AUTO) 208 K/uL (150-450); RED BLOOD CELL COUNT(AUTO) 4.01 MIL/uL (4.5-6.0); RED CELL DISTRIBUTION WIDTH 14.1 % (11.5-15.0); WHITE BLOOD COUNT (AUTO) 5.7 K/uL (4.3-11.0)
[2023-11-12 01:09] LABS: CALCIUM, SERUM 9.6 mg/dL (8.5-10.1); CARBON DIOXIDE 25 mmol/L (21-32); CHLORIDE 103 mmol/L (98-107); CREATININE 0.7 mg/dL (0.6-1.3); GLUCOSE 131 mg/dL (74-106); POTASSIUM 3.7 mmol/L (3.5-5.1); SODIUM SERUM 138 mmol/L (136-145); UREA NITROGEN, BLOOD 16 mg/dL (7-18)
[2023-11-12 01:14] LABS: ALANINE AMINOTRANSFERASE 14 U/L (12-78); ALBUMIN 4.1 g/dL (3.4-5.0); ALKALINE PHOSPHATASE 41 U/L (46-116); ASPARTATE AMINOTRANSFERASE 13 U/L (15-37); BILIRUBIN,TOTAL 0.4 mg/dL (0.2-1.0); CREATINE KINASE, TOTAL 106 U/L (39-308); TOTAL PROTEIN, SERUM 7.5 g/dL (6.4-8.2)
== END 2023-11-12 03:13 | disposition left against medical advice (07) ==
LOC: ER 20:23
DX: R31.9 Hematuria, unspecified (principal); F03.90 Unspecified dementia, unspecified severity, without behavioral disturbance, psychotic disturbance, mood disturbance, and anxiety; I10 Essential (primary) hypertension; J45.909 Unspecified asthma, uncomplicated; G43.909 Migraine, unspecified, not intractable, without status migrainosus; K21.9 Gastro-esophageal reflux disease without esophagitis; F32.A Depression, unspecified; Z90.89 Acquired absence of other organs; Z79.899 Other long term (current) drug therapy
CPT/HCPCS: 36415; 80053-TC; 81001; 82550-TC; 85025-TC

== ENCOUNTER 2025-01-16 12:36 | Emergency (ER) | payer MEDICARE, OTHER ==
[~2025-01-16] VITALS: Ht 154.9 cm; Wt 54.4 kg
[2025-01-16] MEDS ORDERED: ACET-2605 PO (16:00)
[2025-01-16 16:58] VITALS: BP 135/77; TEMP 98.4; O2SAT 98
== END 2025-01-16 16:58 | disposition home or self-care (01) ==
LOC: ER 12:38
DX: S09.8XXA Other specified injuries of head, initial encounter (principal); M25.551 Pain in right hip; F03.93 Unspecified dementia, unspecified severity, with mood disturbance; F17.200 Nicotine dependence, unspecified, uncomplicated; F32.A Depression, unspecified; I10 Essential (primary) hypertension; Z79.82 Long term (current) use of aspirin; Z79.899 Other long term (current) drug therapy; Z90.49 Acquired absence of other specified parts of digestive tract; Z90.79 Acquired absence of other genital organ(s); W18.39XA Other fall on same level, initial encounter; Y93.89 Activity, other specified; Y92.89 Other specified places as the place of occurrence of the external cause; Y99.8 Other external cause status
CPT/HCPCS: 70450-TC